=== PATIENT | female | born 1970 | race Caucasian/White ===

== ENCOUNTER 2017-09-19 11:54 | Day surgery (SDC) | payer BC ==
[~2017-09-19] VITALS: Ht 165.1 cm; Wt 59.1 kg
[2017-09-19] VITALS (8 sets, daily range): BP systolic 113–144; BP diastolic 65–87
[~2017-09-19 11:54] MED LIST: ceFAZolin 2gm in dextrose, iso 100 ML IV ONE
[2017-09-19] MEDS ORDERED: famotidine 20mg tablet PO ONE (12:55)
[2017-09-19] MEDS ORDERED: normal saline 500ml IV soln 500 ML IV SCH (12:55)
[2017-09-19] MEDS ORDERED: DIAZ10TA PO (13:24)
[2017-09-19] MEDS ORDERED: SCOP TOP (13:24)
[2017-09-19] MEDS ORDERED: ONDA8TAB9 PO (13:24)
[2017-09-19] MEDS ORDERED: OXCA150T5 PO (13:24)
[2017-09-19] MEDS ORDERED: BUPR1PAT TOP (13:24)
[2017-09-19] MEDS ORDERED: MILN50TA PO (13:24)
[2017-09-19 13:48] LABS: CLARITY,URINE CLEAR (Clear); COLOR,URINE YELLOW (Yellow); GLUCOSE, URINE NEGATIVE (Neg); KETONES,URINE NEGATIVE (Neg); LEUKOCYTE ESTERASE ,URINE NEGATIVE (Neg); NITRITES, URINE NEGATIVE (Neg); OCCULT BLOOD,URINE NEGATIVE (Neg); PROTEIN,URINE TRACE mg/dl (Neg)
[2017-09-19 13:50] LABS: UA COLLECTION TYPE NON-SPECIFIED
[2017-09-19 13:53] LABS: MUCUS STRANDS MODERATE /LPF (Neg); SQUAMOUS EPITHELIAL CELL,UR MODERATE /LPF (FEW)
[2017-09-19 13:54] LABS: BACTERIA,URINE FEW /HPF (Neg); WBC,URINE 0-4 /HPF (0-4)
[2017-09-19 14:24] LABS: BASOPHILS # (AUTO) 0.1 X10'3 (0-0.2); BASOPHILS % (AUTO) 1.4 % (0-1); EOSINOPHILS # (AUTO) 0.1 X10'3 (0-0.9); EOSINOPHILS % (AUTO) 1.9 % (0-6); LYMPHOCYTES # (AUTO) 1.8 X10'3 (1.1-4.8); LYMPHOCYTES % (AUTO) 31.9 % (21-51); MEAN CORPUSCULAR HEMOGLOBIN 28.1 PG (27.0-31.0); MEAN CORPUSCULAR HGB CONC 33.5 % (33.0-36.5); MEAN CORPUSCULAR VOLUME 83.9 FL (78-98); MEAN PLATELET VOLUME 9.7 FL (7.4-10.4); MONOCYTES # (AUTO) 0.5 X10'3 (0-0.9); MONOCYTES % (AUTO) 8.9 % (2-12); NEUTROPHILS # (AUTO) 3.2 X10'3 (1.8-7.7); NEUTROPHILS % (AUTO) 55.9 % (42-75); PRE OP HEMATOCRIT 31.5 % (35.0-45.0); PRE OP PLATELET COUNT 249 X10'3 (140-440); RED BLOOD COUNT 3.75 X10'6 (4.20-5.60); RED CELL DISTRIBUTION WIDTH 14.4 % (11.5-14.5)
[2017-09-19 14:29] LABS: PRE OP HEMOGLOBIN 10.6 g/dL (12.0-16.0)
[2017-09-19 14:32] LABS: ALBUMIN 3.5 G/DL (3.4-5.0); ALBUMIN/GLOBULIN RATIO 0.9 (1.1-1.5); ALKALINE PHOSPHATASE 75 IU/L (46-116); BLOOD UREA NITROGEN 11 MG/DL (7-18); BUN/CREATININE RATIO 15.7 (6.6-38.0); CHLORIDE 102 MMOL/L (99-107); PRE OP ALT 41 U/L (30-65); PRE OP ANION GAP 5 (8-16); PRE OP AST 29 U/L (10-37); PRE OP BILIRUB, TOTAL 0.3 MG/DL (0.0-1.0); PRE OP GLUCOSE 139 MG/DL (70-104); PRE OP POTASSIUM 3.9 MMOL/L (3.4-5.1); PRE OP SODIUM 138 MMOL/L (135-145); TOTAL CARBON DIOXIDE 30.9 MMOL/L (24-32); TOTAL PROTEIN 7.5 G/DL (6.4-8.2); eGFR 90 ML/MIN
[2017-09-19] MEDS ORDERED: ceFAZolin 1000mg inj ONE (17:06)
[2017-09-19] MEDS ORDERED: BUPIVAcaine/PF 2.5 mg/ml (0.25%) 30ml vial ONE (17:06)
[2017-09-19] MEDS ORDERED: bacitracin 15gm ointment TP ONE (17:06)
[2017-09-19] MEDS ORDERED: ringers solution, lacted 1,000 ML IV SCH (17:11)
[2017-09-19] MEDS ORDERED: fentaNYL/PF 50MCG/1 ML 2ML syringe ONE (17:15)
[2017-09-19] MEDS ORDERED: LIDOcaine 2% (20mg/ml) 5ml vial ONE (17:15)
[2017-09-19] MEDS ORDERED: hydrALAZINE 20mg/ml inj. IV PRN (17:15)
[2017-09-19] MEDS ORDERED: midazolam 2 mg/2 ml injection ONE (17:15)
[2017-09-19] MEDS ORDERED: fentaNYL/PF 50MCG/1 ML 2ML syringe IV PRN ×2 (17:15)
[2017-09-19] MEDS ORDERED: propofol inj 20 ML IV ONE (17:15)
[2017-09-19] MEDS ORDERED: ondansetron/PF 4mg/2ml inj IV PRN (17:15)
[2017-09-19] MEDS ORDERED: labetalol 5mg/ml 20ml inj. IV PRN (17:15)
[2017-09-19] MEDS ORDERED: sevoflurane 250ml liquid IH ONE (17:19)
[2017-09-19] MEDS ORDERED: dexamethasone sod phosphate 4mg/ml inj. ONE (17:33)
[2017-09-19] MEDS ORDERED: heparin sodium, porcine/PF 100unit/ml 5ML syringe IV ONE (18:40)
[2017-09-20] MEDS ORDERED: ringers solution, lacted 1,000 ML IV SCH (05:00)
== END 2017-09-19 19:09 | disposition home or self-care (01) ==
LOC: PAS 11:54
PROVIDERS: ATTEND Surgery
DX: K94.13 Enterostomy malfunction (principal); F32.9 Major depressive disorder, single episode, unspecified; D53.9 Nutritional anemia, unspecified; Z90.89 Acquired absence of other organs; Z98.890 Other specified postprocedural states; Z79.899 Other long term (current) drug therapy; Y83.8 Other surgical procedures as the cause of abnormal reaction of the patient, or of later complication, without mention of misadventure at the time of the procedure
CPT/HCPCS: 36415; 43999; 80053; 81001; 85025; A6449; B4087; J0690; J1100; J1642; J2001; J2250; J2704; J3010; J3490; J7120; A7000; J7030

== ENCOUNTER 2017-09-20 13:20 | Day surgery (SDC) | payer BC ==
[2017-09-20] VITALS (8 sets, daily range): BP systolic 113–142; BP diastolic 76–93
[~2017-09-20 13:20] MED LIST changes: +BUPR1PAT TOP; +DIAZ10TA PO; +MILN50TA PO; +ONDA8TAB9 PO; +OXCA150T5 PO; +SCOP TOP; -ceFAZolin 2gm in dextrose, iso 100 ML IV ONE
[2017-09-20] MEDS ORDERED: iohexol 300 MG/1 ML 50ml polymer ONE (14:02)
[2017-09-20] MEDS ORDERED: HYDROcodone/acetaminophen 10/325mg tab PO ONE (15:20)
== END 2017-09-20 16:05 | disposition home or self-care (01) ==
LOC: SSTAY O 13:20
PROVIDERS: ATTEND Radiology Diagnostic Radiology
DX: Z46.59 Encounter for fitting and adjustment of other gastrointestinal appliance and device (principal); K31.84 Gastroparesis; Z93.4 Other artificial openings of gastrointestinal tract status; Z79.899 Other long term (current) drug therapy
CPT/HCPCS: 49451; B4087; C1769; Q9967

== ENCOUNTER 2017-11-19 19:26 | Outpatient (CLI) | payer BC ==
[2017-11-19 20:18] LABS: ALANINE AMINOTRANSFERASE 16 U/L (12-78); ALBUMIN 3.9 G/DL (3.4-5.0); ALBUMIN/GLOBULIN RATIO 1.1 (1.1-1.5); ALKALINE PHOSPHATASE 75 IU/L (46-116); ANION GAP 11 (8-16); ASPARTATE AMINO TRANSFERASE 18 U/L (10-37); BILIRUBIN,TOTAL 0.2 MG/DL (0.1-1.0); BLOOD UREA NITROGEN 19 MG/DL (7-18); BUN/CREATININE RATIO 28.4 (6.6-38.0); CALCIUM 9.2 MG/DL (8.5-10.1); CHLORIDE 97 MMOL/L (99-107); CREATININE 0.67 MG/DL (0.40-0.90); GLUCOSE 115 MG/DL (70-104); LACTATE DEHYDROGENASE 173 U/L (81-234); MAGNESIUM 2.3 MG/DL (1.5-2.4); PHOSPHORUS 3.9 MG/DL (2.3-4.5); PREALBUMIN 27.2 MG/DL (19-36); SODIUM 142 MMOL/L (135-145); TOTAL CARBON DIOXIDE 34.3 MMOL/L (24-32); TOTAL PROTEIN 7.5 G/DL (6.4-8.2); TRIGLYCERIDES 280 MG/DL (20-135); eGFR > 90 ML/MIN
[2017-11-19 20:30] LABS: POTASSIUM 2.7 MMOL/L (3.5-5.1)
== END 2017-11-19 23:59 | disposition home or self-care (01) ==
LOC: LAB SPEC 19:26
PROVIDERS: ATTEND Nurse Practitioner Family
DX: K31.84 Gastroparesis (principal)
CPT/HCPCS: 36415; 80053; 83615; 83735; 84100; 84134; 84478; 85025

== ENCOUNTER 2018-01-08 17:54 | Inpatient (IN) | payer BC ==
[~2018-01-08] VITALS: Ht 165.1 cm; Wt 66.6 kg
[2018-01-08 18:56] LABS: INR 1.1 INR; PARTIAL THROMBOPLASTIN TIME 25 SECONDS (22-32); PROTHROMBIN TIME 11.4 SECONDS (9.0-12.0)
[2018-01-08 18:59] LABS: ANION GAP 14 (8-16); CHLORIDE 101 MMOL/L (99-107); GLUCOSE 116 MG/DL (70-104); POTASSIUM 3.8 MMOL/L (3.5-5.1); SODIUM 140 MMOL/L (135-145)
[2018-01-08 19:00] LABS: ALANINE AMINOTRANSFERASE 48 U/L (12-78); ALBUMIN 3.7 G/DL (3.4-5.0); ALBUMIN/GLOBULIN RATIO 0.9 (1.1-1.5); ALKALINE PHOSPHATASE 70 IU/L (46-116); ASPARTATE AMINO TRANSFERASE 44 U/L (10-37); BILIRUBIN,TOTAL 0.3 MG/DL (0.1-1.0); BLOOD UREA NITROGEN 27 MG/DL (7-18); BUN/CREATININE RATIO 21.6 (6.6-38.0); CREATININE 1.25 MG/DL (0.40-0.90); TOTAL PROTEIN 7.6 G/DL (6.4-8.2); eGFR 46 ML/MIN
[2018-01-08 19:01] LABS: BASOPHILS % (AUTO) 0 % (0-1); EOSINOPHILS % (AUTO) 0 % (0-6); HEMATOCRIT 31.3 % (35.0-45.0); HEMOGLOBIN 10.8 g/dl (12.0-16.0); LYMPHOCYTES # (AUTO) 0.3 X10'3 (1.1-4.8); LYMPHOCYTES % (AUTO) 2.4 % (21-51); MEAN CORPUSCULAR HEMOGLOBIN 29.4 PG (27.0-31.0); MEAN CORPUSCULAR HGB CONC 34.4 % (33.0-36.5); MEAN CORPUSCULAR VOLUME 85.6 FL (78-98); MEAN PLATELET VOLUME 9.4 FL (7.4-10.4); MONOCYTES % (AUTO) 0.2 % (2-12); NEUTROPHILS # (AUTO) 10.6 X10'3 (1.8-7.7); NEUTROPHILS % (AUTO) 97.4 % (42-75); PLATELET COUNT 168 X10'3 (140-440); RED BLOOD COUNT 3.66 X10'6 (4.20-5.60); RED CELL DISTRIBUTION WIDTH 12.7 % (11.5-14.5); WHITE BLOOD COUNT 10.9 X10'3 (4.5-11.0)
[2018-01-08 19:07] LABS: CLARITY,URINE SLIGHTLY CLOUDY (Clear); GLUCOSE, URINE NEGATIVE (Neg); KETONES,URINE TRACE mg/dl (Neg); LEUKOCYTE ESTERASE ,URINE NEGATIVE (Neg); NITRITES, URINE NEGATIVE (Neg); OCCULT BLOOD,URINE NEGATIVE (Neg); PROTEIN,URINE TRACE mg/dl (Neg); UROBILINOGEN,URINE 0.2 E.U/dL (0.2-1.0)
[2018-01-08 19:09] LABS: COLOR,URINE DARK YELLOW (Yellow); UA COLLECTION TYPE CLN CATCH MIDSTREAM
[2018-01-08 19:15] LABS: WBC,URINE 0-4 /HPF (0-4)
[2018-01-08 19:16] LABS: BACTERIA,URINE NONE SEEN /HPF (Neg); HYALINE CASTS 0-3 /LPF (NEGATIVE); MUCUS STRANDS MANY /LPF (Neg); RBC,URINE NONE SEEN /HPF (0-2); SQUAMOUS EPITHELIAL CELL,UR FEW /LPF (FEW)
[2018-01-08 20:07] LABS: LARGE PLATELETS FEW; PLATELET ESTIMATE NORMAL; TOTAL CELLS COUNTED 100
[2018-01-08] MEDS ORDERED: vancomycin/NS 1 GM ADD-VANTAGE 250 ML IV ONE (20:25)
[2018-01-08] MEDS ORDERED: CefTRIAXone 2gm/D5W 50ml 50 ML IV ONE (20:25)
[2018-01-08] MEDS ORDERED: enoxaparin 100mg/ml syringe SUBCUT ONE (20:45)
[2018-01-08] MEDS ORDERED: PROM6.25 PR (21:07)
[2018-01-08] MEDS ORDERED: potassium Cl 40MEQ/NS 500ml 500 ML IV PRN (22:10)
[2018-01-08] MEDS ORDERED: ondansetron/PF 4mg/2ml inj IV PRN (22:10)
[2018-01-08] MEDS ORDERED: magnesium 2GM in 50ml NS 50 ML IV PRN (22:10)
[2018-01-08] MEDS ORDERED: magnesium 4gm in 100ml NS 100 ML IV PRN (22:10)
[2018-01-08] MEDS ORDERED: acetaminophen 650mg rectal suppository RC PRN (22:10)
[2018-01-08] MEDS ORDERED: HYDROmorphone inj. 0.5 MG/0.5 ML DISP.SYRIN IV PRN (22:10)
[2018-01-08] MEDS ORDERED: proMETHazine 25mg rectal suppository RC PRN (22:15)
[2018-01-08] MEDS: normal saline 1000ml 1,000 ML IV SCH (22:51)
[2018-01-09] VITALS (16 sets, daily range): BP systolic 90–142; BP diastolic 46–70
[2018-01-09] MEDS ORDERED: normal saline 1000ml 1,000 ML IV ONE (01:15)
[2018-01-09] MEDS ORDERED: fentaNYL/PF 50MCG/1 ML 2ML syringe IV PRN (01:20)
[2018-01-09] MEDS: normal saline 1000ml 1,000 ML IV SCH ×3 (06:06→18:02)
[2018-01-09 06:20] LABS: BASOPHILS % (AUTO) 0.1 % (0-1); EOSINOPHILS % (AUTO) 0 % (0-6); HEMATOCRIT 28.9 % (35.0-45.0); HEMOGLOBIN 9.7 g/dl (12.0-16.0); LYMPHOCYTES # (AUTO) 0.5 X10'3 (1.1-4.8); LYMPHOCYTES % (AUTO) 7.7 % (21-51); MEAN CORPUSCULAR HEMOGLOBIN 29.6 PG (27.0-31.0); MEAN CORPUSCULAR HGB CONC 33.7 % (33.0-36.5); MEAN CORPUSCULAR VOLUME 87.8 FL (78-98); MEAN PLATELET VOLUME 9.3 FL (7.4-10.4); MONOCYTES # (AUTO) 0.2 X10'3 (0-0.9); MONOCYTES % (AUTO) 3.9 % (2-12); NEUTROPHILS # (AUTO) 5.2 X10'3 (1.8-7.7); NEUTROPHILS % (AUTO) 88.3 % (42-75); PLATELET COUNT 133 X10'3 (140-440); RED BLOOD COUNT 3.29 X10'6 (4.20-5.60); RED CELL DISTRIBUTION WIDTH 13.1 % (11.5-14.5); WHITE BLOOD COUNT 5.9 X10'3 (4.5-11.0)
[2018-01-09 06:49] LABS: ALBUMIN 2.9 G/DL (3.4-5.0); ANION GAP 8 (8-16); BLOOD UREA NITROGEN 16 MG/DL (7-18); BUN/CREATININE RATIO 18.8 (6.6-38.0); CALCIUM 8.1 MG/DL (8.5-10.1); CHLORIDE 106 MMOL/L (99-107); CREATININE 0.85 MG/DL (0.40-0.90); GLUCOSE 101 MG/DL (70-104); MAGNESIUM 1.7 MG/DL (1.5-2.4); POTASSIUM 3.4 MMOL/L (3.5-5.1); SODIUM 140 MMOL/L (135-145); TOTAL CARBON DIOXIDE 26.4 MMOL/L (24-32); eGFR 71 ML/MIN
[2018-01-09] MEDS: K and/or MAG REPLACEMENT MC SCH (08:00)
[2018-01-09] MEDS ORDERED: VANCOMYCIN 750MG IV in NS 250 ML IV SCH (08:00)
[2018-01-09] MEDS ORDERED: famotidine 20mg tablet PO ONE (09:24)
[2018-01-09] MEDS ORDERED: ringers solution, lacted 1,000 ML IV SCH ×2 (09:24→13:14)
[2018-01-09] MEDS: potassium Cl 40MEQ/NS 500ml 500 ML IV PRN (09:50)
[2018-01-09] MEDS: vancomycin/NS 1 GM ADD-VANTAGE 250 ML IV SCH ×2 (09:57→22:15)
[2018-01-09] MEDS: morphine 4 MG/ML inj SYRINge IV PRN (11:10)
[2018-01-09] MEDS ORDERED: MIDAZolam 5mg/5ml vial ONE (13:11)
[2018-01-09] MEDS ORDERED: fentaNYL/PF 50MCG/1 ML 2ML syringe ONE (13:11)
[2018-01-09] MEDS ORDERED: morphine 4 MG/ML inj SYRINge IV PRN ×2 (13:15)
[2018-01-09] MEDS ORDERED: meperidine/PF 50mg/ml syringe IV PRN ×3 (13:15)
[2018-01-09] MEDS ORDERED: ondansetron/PF 4mg/2ml inj IV PRN (13:15)
[2018-01-09] MEDS ORDERED: proCHLORperazine 10 MG/2 ml inj IV PRN (13:15)
[2018-01-09] MEDS ORDERED: LIDOcaine 1%/PF (10mg/ml) 5ml vial ONE (13:34)
[2018-01-09] MEDS ORDERED: iohexol 300 MG/1 ML 50ml polymer ONE (13:34)
[2018-01-09] MEDS ORDERED: dextrose 50%-water 50ml dispensing syringe IV PRN ×2 (20:35)
[2018-01-09] MEDS ORDERED: dextrose ORAL solution 15 GM/59 ML bottle PO PRN ×2 (20:35)
[2018-01-09] MEDS ORDERED: glucagon, human recombinant 1mg kit SUBCUT PRN (20:35)
[2018-01-09] MEDS ORDERED: MESSAGE TO PHARMACY PO ONE (20:35)
[2018-01-09] MEDS ORDERED: insulin Lispro (HumaLOG) vial - multi-dose SQ SCH (20:35)
[2018-01-09] MEDS ORDERED: proMETHazine 6.25 mg/5 ml UD oral syrup JT PRN (20:40)
[2018-01-09] MEDS ORDERED: non-formulary drug (Buprenorphine (Butrans) 1 PATCH) TOP SCH (20:40)
[2018-01-09] MEDS ORDERED: non-formulary drug (Ondansetron (Zofran Odt) 1 TAB) PO SCH (21:00)
[2018-01-09] MEDS: insulin glargine (Lantus) pen - multi-dose SQ SCH (21:00)
[2018-01-09] MEDS: proCHLORperazine 10 MG/2 ml inj IV PRN (21:31)
[2018-01-09] MEDS: ondansetron 4mg rapidly disintigrating tab PO SCH (21:31)
[2018-01-09] MEDS: potassium CL 20mEq in D5-1/2NS 1,000 ML IV SCH ×2 (21:31→21:44)
[2018-01-09] MEDS: scopolamine 1.5mg patch.TD72 TD SCH (21:32)
[2018-01-09] MEDS ORDERED: diazepam 5mg tablet PO ONE (22:00)
[2018-01-09] MEDS ORDERED: SAVELLA 50 MG PO ONE (22:00)
[2018-01-09] MEDS ORDERED: oxcarbazepine 150mg tablet PO ONE (22:00)
[2018-01-09] MEDS: famotidine/PF 10 mg/ml inj IV SCH (22:05)
[2018-01-10] VITALS: BP 98/52
[2018-01-10] MEDS: potassium Cl 40MEQ/NS 500ml 500 ML IV PRN (00:26)
[2018-01-10 04:30] VITALS: BP 90/63
[2018-01-10 05:50] LABS: BASOPHILS % (AUTO) 0.2 % (0-1); EOSINOPHILS % (AUTO) 0 % (0-6); HEMATOCRIT 23.5 % (35.0-45.0); HEMOGLOBIN 8.1 g/dl (12.0-16.0); LYMPHOCYTES # (AUTO) 0.9 X10'3 (1.1-4.8); LYMPHOCYTES % (AUTO) 23.2 % (21-51); MEAN CORPUSCULAR HEMOGLOBIN 29.5 PG (27.0-31.0); MEAN CORPUSCULAR HGB CONC 34.4 % (33.0-36.5); MEAN CORPUSCULAR VOLUME 85.7 FL (78-98); MEAN PLATELET VOLUME 9.6 FL (7.4-10.4); MONOCYTES # (AUTO) 0.3 X10'3 (0-0.9); MONOCYTES % (AUTO) 8.5 % (2-12); NEUTROPHILS # (AUTO) 2.5 X10'3 (1.8-7.7); NEUTROPHILS % (AUTO) 68.1 % (42-75); PLATELET COUNT 100 X10'3 (140-440); RED BLOOD COUNT 2.74 X10'6 (4.20-5.60); WHITE BLOOD COUNT 3.7 X10'3 (4.5-11.0)
[2018-01-10] MEDS ORDERED: diphenhydrAMINE 50 mg/ml inj IV PRN (06:05)
[2018-01-10 06:09] LABS: ALBUMIN 2.4 G/DL (3.4-5.0); ANION GAP 4 (8-16); BLOOD UREA NITROGEN 10 MG/DL (7-18); BUN/CREATININE RATIO 14.3 (6.6-38.0); CALCIUM 7.7 MG/DL (8.5-10.1); CHLORIDE 111 MMOL/L (99-107); GLUCOSE 103 MG/DL (70-104); MAGNESIUM 1.9 MG/DL (1.5-2.4); POTASSIUM 4.2 MMOL/L (3.5-5.1); SODIUM 138 MMOL/L (135-145); TOTAL CARBON DIOXIDE 22.9 MMOL/L (24-32); eGFR 89 ML/MIN
[2018-01-10 07:02] VITALS: BP 98/63
[2018-01-10] MEDS ORDERED: MILNACIPRAN HCL 50 MG TABLET PO SCH (08:00)
[2018-01-10] MEDS ORDERED: DIAZEPAM PO SCH (08:00)
[2018-01-10] MEDS ORDERED: diazepam 5mg tablet PO SCH (08:00)
[2018-01-10] MEDS ORDERED: SAVELLA 50 MG PO SCH (08:00)
[2018-01-10] MEDS: K and/or MAG REPLACEMENT MC SCH (08:00)
[2018-01-10] MEDS: ondansetron 4mg rapidly disintigrating tab PO SCH ×3 (08:48→20:15)
[2018-01-10] MEDS: oxcarbazepine 150mg tablet PO SCH (08:49)
[2018-01-10] MEDS: enoxaparin 60mg/0.6ml syringe SUBCUT SCH ×2 (08:51→20:10)
[2018-01-10] MEDS ORDERED: VANCOMYCIN LEVEL IV NR (09:30)
[2018-01-10] MEDS: BUTRANS TP SCH (10:00)
[2018-01-10] MEDS ORDERED: vancomycin/NS 1 GM ADD-VANTAGE 250 ML IV SCH (10:00)
[2018-01-10 10:10] LABS: VANCOMYCIN,TROUGH 7.2 UG/ML (6.0-14.0)
[2018-01-10] MEDS: famotidine/PF 10 mg/ml inj IV SCH ×2 (11:57→22:06)
[2018-01-10 12:27] VITALS: BP 96/64
[2018-01-10] MEDS ORDERED: insulin regular, human vial - multi-dose SQ SCH (15:44)
[2018-01-10 16:06] LABS: PREALBUMIN 12.5 MG/DL (19-36)
[2018-01-10] MEDS: potassium CL 20mEq in D5-1/2NS 1,000 ML IV SCH (16:35)
[2018-01-10 18:00] VITALS: BP 108/72
[2018-01-10] MEDS: lactobacillus rhamnosus 10,000 MMU CELLS/CAPSULE PO SCH (20:00)
[2018-01-10] MEDS: vancomycin/NS 1 GM ADD-VANTAGE 250 ML IV SCH (20:08)
[2018-01-10] MEDS: SAVELLA 100 MG PO SCH (20:17)
[2018-01-10] MEDS: insulin glargine (Lantus) pen - multi-dose SQ SCH (21:00)
[2018-01-10] MEDS: diazepam 5mg tablet PO SCH (23:41)
[2018-01-11] VITALS: BP 112/57
[2018-01-11] MEDS: potassium CL 20mEq in D5-1/2NS 1,000 ML IV SCH ×2 (02:35→08:03)
[2018-01-11] MEDS: vancomycin/NS 1 GM ADD-VANTAGE 250 ML IV SCH (03:17)
[2018-01-11 05:33] LABS: BASOPHILS % (AUTO) 0.3 % (0-1); EOSINOPHILS % (AUTO) 0.9 % (0-6); HEMATOCRIT 23.9 % (35.0-45.0); HEMOGLOBIN 8.2 g/dl (12.0-16.0); LYMPHOCYTES # (AUTO) 1.3 X10'3 (1.1-4.8); LYMPHOCYTES % (AUTO) 35.7 % (21-51); MEAN CORPUSCULAR HEMOGLOBIN 29.6 PG (27.0-31.0); MEAN CORPUSCULAR HGB CONC 34.3 % (33.0-36.5); MEAN CORPUSCULAR VOLUME 86.3 FL (78-98); MEAN PLATELET VOLUME 10.1 FL (7.4-10.4); MONOCYTES # (AUTO) 0.5 X10'3 (0-0.9); MONOCYTES % (AUTO) 12.5 % (2-12); NEUTROPHILS # (AUTO) 1.8 X10'3 (1.8-7.7); NEUTROPHILS % (AUTO) 50.6 % (42-75); PLATELET COUNT 111 X10'3 (140-440); RED BLOOD COUNT 2.77 X10'6 (4.20-5.60); RED CELL DISTRIBUTION WIDTH 13.2 % (11.5-14.5); WHITE BLOOD COUNT 3.7 X10'3 (4.5-11.0)
[2018-01-11 05:56] LABS: ALBUMIN 2.6 G/DL (3.4-5.0); ANION GAP 9 (8-16); BLOOD UREA NITROGEN 6 MG/DL (7-18); BUN/CREATININE RATIO 8.3 (6.6-38.0); CALCIUM 7.9 MG/DL (8.5-10.1); CHLORIDE 110 MMOL/L (99-107); CREATININE 0.72 MG/DL (0.40-0.90); GLUCOSE 110 MG/DL (70-104); MAGNESIUM 1.8 MG/DL (1.5-2.4); POTASSIUM 3.6 MMOL/L (3.5-5.1); SODIUM 142 MMOL/L (135-145); TOTAL CARBON DIOXIDE 23.5 MMOL/L (24-32); eGFR 86 ML/MIN
[2018-01-11 08:00] VITALS: BP 113/76
[2018-01-11] MEDS: K and/or MAG REPLACEMENT MC SCH (08:00)
[2018-01-11] MEDS: SAVELLA 100 MG PO SCH ×2 (08:01→20:34)
[2018-01-11] MEDS: famotidine/PF 10 mg/ml inj IV SCH ×2 (08:01→20:33)
[2018-01-11] MEDS: enoxaparin 60mg/0.6ml syringe SUBCUT SCH ×2 (08:02→20:33)
[2018-01-11] MEDS: ondansetron 4mg rapidly disintigrating tab PO SCH ×3 (08:02→20:34)
[2018-01-11] MEDS: oxcarbazepine 150mg tablet PO SCH (08:02)
[2018-01-11] MEDS: lactobacillus rhamnosus 10,000 MMU CELLS/CAPSULE PO SCH ×2 (08:02→20:00)
[2018-01-11] MEDS ORDERED: VANCOMYCIN LEVEL IV NR (10:30)
[2018-01-11 11:00] VITALS: BP 110/70
[2018-01-11] MEDS: Cefazolin 2GM/100ML NS IVPB 100 ML IV SCH ×2 (16:07→23:45)
[2018-01-11 18:00] VITALS: BP 120/74
[2018-01-11] MEDS: diazepam 5mg tablet PO SCH (20:34)
[2018-01-11] MEDS: insulin glargine (Lantus) pen - multi-dose SQ SCH (21:00)
[2018-01-11] MEDS: mirtazapine 15mg tablet PO SCH (21:50)
[2018-01-11] MEDS: morphine 4 MG/ML inj SYRINge IV PRN (22:02)
[2018-01-12] VITALS: BP 114/70
[2018-01-12] MEDS: potassium CL 20mEq in D5-1/2NS 1,000 ML IV SCH ×3 (02:20→18:35)
[2018-01-12 05:31] LABS: ALBUMIN 2.7 G/DL (3.4-5.0); ANION GAP 9 (8-16); BLOOD UREA NITROGEN 7 MG/DL (7-18); BUN/CREATININE RATIO 11.5 (6.6-38.0); CALCIUM 8.6 MG/DL (8.5-10.1); CHLORIDE 112 MMOL/L (99-107); CREATININE 0.61 MG/DL (0.40-0.90); GLUCOSE 103 MG/DL (70-104); MAGNESIUM 1.8 MG/DL (1.5-2.4); POTASSIUM 3.6 MMOL/L (3.5-5.1); SODIUM 146 MMOL/L (135-145); TOTAL CARBON DIOXIDE 25.3 MMOL/L (24-32); eGFR > 90 ML/MIN
[2018-01-12 06:03] LABS: BASOPHILS % (AUTO) 0.2 % (0-1); EOSINOPHILS # (AUTO) 0.1 X10'3 (0-0.9); EOSINOPHILS % (AUTO) 1.5 % (0-6); HEMATOCRIT 26.9 % (35.0-45.0); HEMOGLOBIN 8.9 g/dl (12.0-16.0); LYMPHOCYTES # (AUTO) 1.5 X10'3 (1.1-4.8); MEAN CORPUSCULAR HEMOGLOBIN 28.9 PG (27.0-31.0); MEAN CORPUSCULAR HGB CONC 33.2 % (33.0-36.5); MEAN CORPUSCULAR VOLUME 86.9 FL (78-98); MEAN PLATELET VOLUME 10.4 FL (7.4-10.4); MONOCYTES # (AUTO) 0.5 X10'3 (0-0.9); MONOCYTES % (AUTO) 13.4 % (2-12); NEUTROPHILS # (AUTO) 1.6 X10'3 (1.8-7.7); NEUTROPHILS % (AUTO) 44.9 % (42-75); PLATELET COUNT 139 X10'3 (140-440); RED CELL DISTRIBUTION WIDTH 12.8 % (11.5-14.5); WHITE BLOOD COUNT 3.6 X10'3 (4.5-11.0)
[2018-01-12 07:00] VITALS: BP 113/66
[2018-01-12] MEDS: K and/or MAG REPLACEMENT MC SCH (08:00)
[2018-01-12] MEDS: lactobacillus rhamnosus 10,000 MMU CELLS/CAPSULE PO SCH ×2 (08:00→20:00)
[2018-01-12] MEDS: enoxaparin 60mg/0.6ml syringe SUBCUT SCH ×2 (08:52→20:21)
[2018-01-12] MEDS: famotidine/PF 10 mg/ml inj IV SCH ×2 (08:54→20:21)
[2018-01-12] MEDS: SAVELLA 100 MG PO SCH ×2 (08:57→20:23)
[2018-01-12] MEDS: oxcarbazepine 150mg tablet PO SCH (08:58)
[2018-01-12] MEDS: ondansetron 4mg rapidly disintigrating tab PO SCH ×3 (08:58→20:22)
[2018-01-12] MEDS ORDERED: ibuprofen tablet 400 MG TABLET PO PRN (09:40)
[2018-01-12] MEDS: Cefazolin 2GM/100ML NS IVPB 100 ML IV SCH ×2 (10:17→17:51)
[2018-01-12] MEDS: ibuprofen 200mg tablet PO PRN (10:23)
[2018-01-12 12:00] VITALS: BP 132/78
[2018-01-12 20:00] VITALS: BP 125/87
[2018-01-12] MEDS: mirtazapine 15mg tablet PO SCH (20:22)
[2018-01-12] MEDS: diazepam 5mg tablet PO SCH (20:22)
[2018-01-12] MEDS: scopolamine 1.5mg patch.TD72 TD SCH ×2 (20:40→23:09)
[2018-01-12] MEDS: OCTREOTIDE SQ SCH (21:00)
[2018-01-12] MEDS: insulin glargine (Lantus) pen - multi-dose SQ SCH (21:00)
[2018-01-13] VITALS: BP 107/69
[2018-01-13] MEDS: Cefazolin 2GM/100ML NS IVPB 100 ML IV SCH ×3 (00:09→16:31)
[2018-01-13] MEDS: potassium CL 20mEq in D5-1/2NS 1,000 ML IV SCH ×2 (04:33→14:40)
[2018-01-13] MEDS: morphine 4 MG/ML inj SYRINge IV PRN ×2 (05:01→09:42)
[2018-01-13] MEDS: ibuprofen 200mg tablet PO PRN (05:13)
[2018-01-13 05:19] LABS: BASOPHILS % (AUTO) 0.1 % (0-1); EOSINOPHILS # (AUTO) 0.1 X10'3 (0-0.9); EOSINOPHILS % (AUTO) 1.9 % (0-6); HEMATOCRIT 25.1 % (35.0-45.0); HEMOGLOBIN 8.5 g/dl (12.0-16.0); LYMPHOCYTES # (AUTO) 1.6 X10'3 (1.1-4.8); LYMPHOCYTES % (AUTO) 38.7 % (21-51); MEAN CORPUSCULAR HEMOGLOBIN 29.2 PG (27.0-31.0); MEAN CORPUSCULAR HGB CONC 33.7 % (33.0-36.5); MEAN CORPUSCULAR VOLUME 86.6 FL (78-98); MEAN PLATELET VOLUME 9.4 FL (7.4-10.4); MONOCYTES # (AUTO) 0.6 X10'3 (0-0.9); MONOCYTES % (AUTO) 13.7 % (2-12); NEUTROPHILS # (AUTO) 1.9 X10'3 (1.8-7.7); NEUTROPHILS % (AUTO) 45.6 % (42-75); PLATELET COUNT 154 X10'3 (140-440); RED CELL DISTRIBUTION WIDTH 13.3 % (11.5-14.5); WHITE BLOOD COUNT 4.1 X10'3 (4.5-11.0)
[2018-01-13 05:33] LABS: ALBUMIN 2.6 G/DL (3.4-5.0); ANION GAP 8 (8-16); BLOOD UREA NITROGEN 6 MG/DL (7-18); CALCIUM 8.4 MG/DL (8.5-10.1); CHLORIDE 108 MMOL/L (99-107); CREATININE 0.67 MG/DL (0.40-0.90); GLUCOSE 98 MG/DL (70-104); MAGNESIUM 1.8 MG/DL (1.5-2.4); SODIUM 143 MMOL/L (135-145); TOTAL CARBON DIOXIDE 27.4 MMOL/L (24-32); eGFR > 90 ML/MIN
[2018-01-13 08:00] VITALS: BP 121/74
[2018-01-13] MEDS: K and/or MAG REPLACEMENT MC SCH (08:00)
[2018-01-13] MEDS: lactobacillus rhamnosus 10,000 MMU CELLS/CAPSULE PO SCH ×2 (08:00→20:00)
[2018-01-13] MEDS: famotidine/PF 10 mg/ml inj IV SCH ×2 (08:46→20:51)
[2018-01-13] MEDS: SAVELLA 100 MG PO SCH (08:46)
[2018-01-13] MEDS: oxcarbazepine 150mg tablet PO SCH (08:46)
[2018-01-13] MEDS: ondansetron 4mg rapidly disintigrating tab PO SCH ×3 (08:47→20:49)
[2018-01-13] MEDS: enoxaparin 60mg/0.6ml syringe SUBCUT SCH ×2 (08:50→20:52)
[2018-01-13 12:00] VITALS: BP 119/75
[2018-01-13 20:00] VITALS: BP 124/74
[2018-01-13] MEDS: diazepam 5mg tablet PO SCH (20:49)
[2018-01-13] MEDS: mirtazapine 15mg tablet PO SCH (20:50)
[2018-01-13] MEDS: MILNACIPRAN HCL 50 MG TABLET PO SCH (20:51)
[2018-01-13] MEDS: insulin glargine (Lantus) pen - multi-dose SQ SCH (21:00)
[2018-01-13] MEDS: OCTREOTIDE SQ SCH (21:18)
[2018-01-14] VITALS: BP 107/65
[2018-01-14] MEDS: Cefazolin 2GM/100ML NS IVPB 100 ML IV SCH ×3 (00:09→15:49)
[2018-01-14] MEDS: potassium CL 20mEq in D5-1/2NS 1,000 ML IV SCH ×4 (04:15→22:34)
[2018-01-14] MEDS: morphine 4 MG/ML inj SYRINge IV PRN ×2 (04:21→22:56)
[2018-01-14] MEDS: SUMAtriptan 25 MG tablet PO PRN (04:26)
[2018-01-14 05:36] LABS: PREALBUMIN 14.2 MG/DL (19-36)
[2018-01-14] MEDS: ibuprofen 200mg tablet PO PRN (07:43)
[2018-01-14] MEDS: famotidine/PF 10 mg/ml inj IV SCH ×2 (07:45→22:20)
[2018-01-14] MEDS: lactobacillus rhamnosus 10,000 MMU CELLS/CAPSULE PO SCH ×2 (07:46→20:00)
[2018-01-14] MEDS: ondansetron 4mg rapidly disintigrating tab PO SCH ×3 (07:47→22:20)
[2018-01-14] MEDS: MILNACIPRAN HCL 50 MG TABLET PO SCH ×2 (07:47→22:20)
[2018-01-14] MEDS: oxcarbazepine 150mg tablet PO SCH (07:47)
[2018-01-14] MEDS: enoxaparin 60mg/0.6ml syringe SUBCUT SCH ×2 (07:48→22:22)
[2018-01-14] MEDS: K and/or MAG REPLACEMENT MC SCH (08:00)
[2018-01-14 08:06] VITALS: BP 132/75
[2018-01-14] MEDS: scopolamine 1.5mg patch.TD72 TD SCH (11:20)
[2018-01-14 11:46] VITALS: BP 118/73
[2018-01-14 19:30] VITALS: BP 125/78
[2018-01-14] MEDS: OCTREOTIDE SQ SCH (21:00)
[2018-01-14] MEDS: insulin glargine (Lantus) pen - multi-dose SQ SCH (21:00)
[2018-01-14] MEDS: mirtazapine 15mg tablet PO SCH (22:19)
[2018-01-14] MEDS: diazepam 5mg tablet PO SCH (22:35)
[2018-01-15] VITALS (8 sets, daily range): BP systolic 115–158; BP diastolic 59–89
[2018-01-15] MEDS: Cefazolin 2GM/100ML NS IVPB 100 ML IV SCH ×4 (00:25→23:43)
[2018-01-15] MEDS: ibuprofen 200mg tablet PO PRN (00:30)
[2018-01-15] MEDS: SUMAtriptan 25 MG tablet PO PRN ×4 (02:46→20:31)
[2018-01-15] MEDS: famotidine/PF 10 mg/ml inj IV SCH ×2 (06:41→20:24)
[2018-01-15] MEDS: lactobacillus rhamnosus 10,000 MMU CELLS/CAPSULE PO SCH ×2 (06:41→20:31)
[2018-01-15] MEDS: MILNACIPRAN HCL 50 MG TABLET PO SCH ×2 (06:42→20:31)
[2018-01-15] MEDS: oxcarbazepine 150mg tablet PO SCH (06:43)
[2018-01-15] MEDS: ondansetron 4mg rapidly disintigrating tab PO SCH ×3 (06:43→20:22)
[2018-01-15] MEDS: enoxaparin 60mg/0.6ml syringe SUBCUT SCH ×2 (08:00→20:24)
[2018-01-15] MEDS: K and/or MAG REPLACEMENT MC SCH (08:00)
[2018-01-15] MEDS: morphine 4 MG/ML inj SYRINge IV PRN ×2 (08:07→20:23)
[2018-01-15] MEDS: proCHLORperazine 10 MG/2 ml inj IV PRN ×2 (08:07→22:39)
[2018-01-15] MEDS ORDERED: midazolam 2 mg/2 ml injection ONE (14:40)
[2018-01-15] MEDS ORDERED: HYDROmorphone 1 mg/ml syringe ONE (14:40)
[2018-01-15] MEDS ORDERED: LIDOcaine 0.5% (5mg/ml) 50ml vial ONE (14:40)
[2018-01-15] MEDS ORDERED: HYDROmorphone 1 mg/ml syringe IV ONE (14:50)
[2018-01-15] MEDS ORDERED: MIDAZolam 5mg/ml 2ml vial IV ONE (16:00)
[2018-01-15] MEDS: potassium CL 20mEq in D5-1/2NS 1,000 ML IV SCH ×2 (16:35→22:39)
[2018-01-15] MEDS: diazepam 5mg tablet PO SCH (20:31)
[2018-01-15] MEDS: mirtazapine 15mg tablet PO SCH (20:31)
[2018-01-15] MEDS: insulin glargine (Lantus) pen - multi-dose SQ SCH (20:59)
[2018-01-15] MEDS: OCTREOTIDE SQ SCH (21:00)
[2018-01-16] VITALS: BP 106/66
[2018-01-16] MEDS: morphine 4 MG/ML inj SYRINge IV PRN (01:57)
[2018-01-16] MEDS: proCHLORperazine 10 MG/2 ml inj IV PRN (04:48)
[2018-01-16 07:13] VITALS: BP 93/57
[2018-01-16] MEDS: K and/or MAG REPLACEMENT MC SCH (08:00)
[2018-01-16] MEDS: lactobacillus rhamnosus 10,000 MMU CELLS/CAPSULE PO SCH ×2 (08:00→20:00)
[2018-01-16] MEDS: Cefazolin 2GM/100ML NS IVPB 100 ML IV SCH ×3 (08:48→23:52)
[2018-01-16] MEDS: enoxaparin 60mg/0.6ml syringe SUBCUT SCH ×2 (08:52→22:07)
[2018-01-16] MEDS: MILNACIPRAN HCL 50 MG TABLET PO SCH ×2 (08:54→22:08)
[2018-01-16] MEDS: ondansetron 4mg rapidly disintigrating tab PO SCH ×3 (08:55→22:04)
[2018-01-16] MEDS: oxcarbazepine 150mg tablet PO SCH (08:55)
[2018-01-16] MEDS: SUMAtriptan 25 MG tablet PO PRN ×2 (08:55→22:05)
[2018-01-16] MEDS: famotidine/PF 10 mg/ml inj IV SCH ×2 (09:02→22:12)
[2018-01-16] MEDS: potassium CL 20mEq in D5-1/2NS 1,000 ML IV SCH ×2 (11:14→22:04)
[2018-01-16 11:24] VITALS: BP 154/88
[2018-01-16 13:15] VITALS: BP 152/75
[2018-01-16 18:00] VITALS: BP 126/79
[2018-01-16] MEDS: OCTREOTIDE SQ SCH (21:00)
[2018-01-16] MEDS: insulin glargine (Lantus) pen - multi-dose SQ SCH (21:00)
[2018-01-16] MEDS: diazepam 5mg tablet PO SCH (22:09)
[2018-01-16] MEDS: mirtazapine 15mg tablet PO SCH (22:10)
[2018-01-17] VITALS: BP 121/76
[2018-01-17] MEDS: famotidine/PF 10 mg/ml inj IV SCH (07:39)
[2018-01-17] MEDS: ondansetron 4mg rapidly disintigrating tab PO SCH ×2 (07:43→13:46)
[2018-01-17] MEDS: oxcarbazepine 150mg tablet PO SCH (07:43)
[2018-01-17] MEDS: enoxaparin 60mg/0.6ml syringe SUBCUT SCH (07:45)
[2018-01-17] MEDS: MILNACIPRAN HCL 50 MG TABLET PO SCH (07:48)
[2018-01-17] MEDS: Cefazolin 2GM/100ML NS IVPB 100 ML IV SCH (07:48)
[2018-01-17] MEDS: lactobacillus rhamnosus 10,000 MMU CELLS/CAPSULE PO SCH (07:49)
[2018-01-17] MEDS: K and/or MAG REPLACEMENT MC SCH (07:50)
[2018-01-17 08:40] VITALS: BP 112/73
[2018-01-17] MEDS: potassium CL 20mEq in D5-1/2NS 1,000 ML IV SCH (09:28)
[2018-01-17] MEDS: BUTRANS TP SCH (10:00)
[2018-01-17] MEDS: scopolamine 1.5mg patch.TD72 TD SCH (10:40)
[2018-01-17] MEDS ORDERED: MIRT15TA8 PO (11:24)
[2018-01-17] MEDS ORDERED: LACT1CAP26 PO (11:24)
== END 2018-01-17 14:00 | disposition home or self-care (01) | DRG 314 ==
LOC: ER 17:55 → ED HOLD 22:06 → SUR 3N 01-09 16:07
PROVIDERS: ADMIT Family Medicine; ATTEND Family Medicine
PROC: 0JPT0WZ Removal of Totally Implantable Vascular Access Device from Trunk Subcutaneous Tissue and Fascia, Open Approach (ICD-10-PCS; 2018-01-09)
PROC: 05PYX3Z Removal of Infusion Device from Upper Vein, External Approach (ICD-10-PCS; 2018-01-09)
PROC: 0JH60XZ Insertion of Tunneled Vascular Access Device into Chest Subcutaneous Tissue and Fascia, Open Approach (ICD-10-PCS; 2018-01-15)
PROC: 02HV33Z Insertion of Infusion Device into Superior Vena Cava, Percutaneous Approach (ICD-10-PCS; 2018-01-15)
PROC: B548ZZA Ultrasonography of Superior Vena Cava, Guidance (ICD-10-PCS; 2018-01-15)
PROC: 0D2DXUZ Change Feeding Device in Lower Intestinal Tract, External Approach (ICD-10-PCS; principal; 2018-01-16)
DX: T80.211A Bloodstream infection due to central venous catheter, initial encounter (principal); A41.01 Sepsis due to Methicillin susceptible Staphylococcus aureus; I82.C11 Acute embolism and thrombosis of right internal jugular vein; K90.9 Intestinal malabsorption, unspecified; K31.84 Gastroparesis; K90.0 Celiac disease; D64.9 Anemia, unspecified; E86.0 Dehydration; Y83.8 Other surgical procedures as the cause of abnormal reaction of the patient, or of later complication, without mention of misadventure at the time of the procedure; D50.0 Iron deficiency anemia secondary to blood loss (chronic); G43.909 Migraine, unspecified, not intractable, without status migrainosus; I80.9 Phlebitis and thrombophlebitis of unspecified site; Z82.49 Family history of ischemic heart disease and other diseases of the circulatory system; Z93.1 Gastrostomy status; Z93.4 Other artificial openings of gastrointestinal tract status; Z90.49 Acquired absence of other specified parts of digestive tract; Y92.89 Other specified places as the place of occurrence of the external cause
CPT/HCPCS: 36415; 36558; 36590; 49451; 70450; 71045; 76937; 77001; 80048; 80053; 80202; 81001; 82948; 83036; 83605; 83735; 84134; 84145; 85025; 85610; 85730; 87040; 87070; 87077; 87186; 93306; 93971; 99152; 99153; A6219; A6257; A6258; A9270; B4087; C1751; C1769; C1894; J0690; J0696; J0780; J1170; J1650; J1815; J2001; J2250; J2270; J2405; J3010; J3370; J3480; J3490; J7030; J7120; Q0169; Q9967

== ENCOUNTER 2018-06-10 14:52 | Inpatient (IN) | payer MEDICARE, OTHER ==
[~2018-06-10] VITALS: Ht 165.1 cm; Wt 57.8 kg
[~2018-06-10 14:52] MED LIST changes: +LACT1CAP26 PO; +MIRT15TA8 PO; +PROM6.256 PR
[2018-06-10] MEDS ORDERED: normal saline 1000ML IV soln IV ONE (15:25)
[2018-06-10] MEDS ORDERED: acetaminophen 325mg tablet PO STA (15:25)
[2018-06-10] MEDS ORDERED: acetaminophen 325mg/10.15ml oral unit dose solution PO ONE (15:40)
[2018-06-10 16:07] LABS: BASOPHILS % (AUTO) 0.3 % (0-1); EOSINOPHILS % (AUTO) 0 % (0-6); HEMATOCRIT 31.1 % (35.0-45.0); HEMOGLOBIN 10.5 g/dl (12.0-16.0); LYMPHOCYTES # (AUTO) 0.6 X10'3 (1.1-4.8); LYMPHOCYTES % (AUTO) 11.5 % (21-51); MEAN CORPUSCULAR HEMOGLOBIN 29.7 PG (27.0-31.0); MEAN CORPUSCULAR HGB CONC 33.7 % (33.0-36.5); MEAN CORPUSCULAR VOLUME 88.1 FL (78-98); MEAN PLATELET VOLUME 8.3 FL (7.4-10.4); MONOCYTES # (AUTO) 0.6 X10'3 (0-0.9); MONOCYTES % (AUTO) 11.1 % (2-12); NEUTROPHILS # (AUTO) 3.8 X10'3 (1.8-7.7); NEUTROPHILS % (AUTO) 77.1 % (42-75); PLATELET COUNT 170 X10'3 (140-440); RED BLOOD COUNT 3.53 X10'6 (4.20-5.60); RED CELL DISTRIBUTION WIDTH 12.6 % (11.5-14.5)
[2018-06-10 16:19] LABS: INR 1.1 INR; PARTIAL THROMBOPLASTIN TIME 30 SECONDS (22-32); PROTHROMBIN TIME 11.3 SECONDS (9.0-12.0)
[2018-06-10 16:21] LABS: ALANINE AMINOTRANSFERASE 42 U/L (12-78); ALBUMIN 3.4 G/DL (3.4-5.0); ALBUMIN/GLOBULIN RATIO 0.7 (1.1-1.5); ALKALINE PHOSPHATASE 103 IU/L (46-116); ANION GAP 12 (8-16); ASPARTATE AMINO TRANSFERASE 22 U/L (10-37); BILIRUBIN,TOTAL 0.3 MG/DL (0.1-1.0); BLOOD UREA NITROGEN 23 MG/DL (7-18); BUN/CREATININE RATIO 27.7 (6.6-38.0); CALCIUM 9.4 MG/DL (8.5-10.1); CHLORIDE 100 MMOL/L (99-107); CREATININE 0.83 MG/DL (0.40-0.90); GLUCOSE 117 MG/DL (70-104); MAGNESIUM 2.2 MG/DL (1.5-2.4); POTASSIUM 3.4 MMOL/L (3.5-5.1); SODIUM 139 MMOL/L (135-145); TOTAL CARBON DIOXIDE 26.9 MMOL/L (24-32); TOTAL PROTEIN 8.2 G/DL (6.4-8.2); eGFR 73 ML/MIN
[2018-06-10 16:46] LABS: CLARITY,URINE CLEAR (Clear); COLOR,URINE YELLOW (Yellow); GLUCOSE, URINE NEGATIVE (Neg); KETONES,URINE NEGATIVE (Neg); LEUKOCYTE ESTERASE ,URINE NEGATIVE (Neg); NITRITES, URINE NEGATIVE (Neg); OCCULT BLOOD,URINE MODERATE (Neg); PROTEIN,URINE 100 mg/dl (Neg); UROBILINOGEN,URINE 0.2 E.U/dL (0.2-1.0)
[2018-06-10 16:48] LABS: UA COLLECTION TYPE CLN CATCH MIDSTREAM; URINE HCG NEGATIVE (NEG)
[2018-06-10 16:54] LABS: MUCUS STRANDS MANY /LPF (Neg); SQUAMOUS EPITHELIAL CELL,UR FEW /LPF (FEW)
[2018-06-10 16:55] LABS: BACTERIA,URINE FEW /HPF (Neg); WBC,URINE 0-4 /HPF (0-4)
[2018-06-10] MEDS ORDERED: normal saline 1000ML IV soln IVB ONE (17:25)
[2018-06-10] MEDS ORDERED: vancomycin/NS 1 GM ADD-VANTAGE 250 ML IV ONE (17:25)
[2018-06-10] MEDS ORDERED: normal saline 1000ml 1,000 ML IV ONE ×3 (18:00→22:45)
[2018-06-10] MEDS ORDERED: Potassium Cl inj 20 MEQ in dextrose 5%-1/2 normal saline 1,000 ML IV SCH (18:32)
[2018-06-10] MEDS ORDERED: magnesium 1gm/100ml D5W IVPB 100 ML IV PRN (18:35)
[2018-06-10] MEDS ORDERED: magnesium Cl slow-release 64mg tablet PO PRN (18:35)
[2018-06-10] MEDS ORDERED: ondansetron/PF 4mg/2ml inj IV PRN (18:35)
[2018-06-10] MEDS ORDERED: acetaminophen 325mg tablet PO PRN (18:35)
[2018-06-10] MEDS ORDERED: bisacodyl 10mg suppository rectal RC PRN (18:35)
[2018-06-10] MEDS ORDERED: mag hydrox/Alum hydrox/simeth 30ml oral suspension PO PRN (18:35)
[2018-06-10] MEDS ORDERED: potassium Cl 20 mEq SR tablet PO PRN ×2 (18:35)
[2018-06-10] MEDS ORDERED: potassium Cl 40MEQ/NS 500ml 500 ML IV PRN ×2 (18:35)
[2018-06-10] MEDS ORDERED: magnesium 4gm in 100ml NS 100 ML IV PRN (18:35)
[2018-06-10] MEDS ORDERED: diphenhydrAMINE 50 mg/ml inj IV PRN (18:45)
[2018-06-10] MEDS: potassium Cl 20mEq in D5-NS 1,000 ML IV SCH (18:50)
[2018-06-10] MEDS ORDERED: iohexol 300mg/ml 100ml inj. ONE (18:57)
[2018-06-10] MEDS: famotidine/PF 10 mg/ml inj IV SCH (20:56)
[2018-06-10 23:00] VITALS: BP 84/54
[2018-06-11] VITALS: BP 95/59
[2018-06-11] MEDS: potassium Cl 20mEq in D5-NS 1,000 ML IV SCH ×3 (00:20→23:59)
[2018-06-11] MEDS: cefepime 1GM/NS ADD-VANTAGE 100 ML IV SCH ×2 (00:21→07:26)
[2018-06-11 01:46] VITALS: BP 98/62
[2018-06-11 04:48] VITALS: BP 94/56
[2018-06-11] MEDS: enoxaparin 40mg/0.4ml syringe SUBCUT SCH (07:25)
[2018-06-11] MEDS: famotidine/PF 10 mg/ml inj IV SCH ×2 (07:26→20:08)
[2018-06-11] MEDS ORDERED: MIRT45TA83 PO (07:29)
[2018-06-11] MEDS ORDERED: ESCI5SOL4 PO (07:32)
[2018-06-11] MEDS: K and/or MAG REPLACEMENT MC SCH (07:37)
[2018-06-11 08:00] VITALS: BP 81/48
[2018-06-11 08:14] LABS: BASOPHILS % (AUTO) 0.4 % (0-1); EOSINOPHILS % (AUTO) 0.8 % (0-6); HEMATOCRIT 23.6 % (35.0-45.0); HEMOGLOBIN 7.8 g/dl (12.0-16.0); LYMPHOCYTES # (AUTO) 1.1 X10'3 (1.1-4.8); LYMPHOCYTES % (AUTO) 30.4 % (21-51); MEAN CORPUSCULAR HEMOGLOBIN 29.3 PG (27.0-31.0); MEAN CORPUSCULAR HGB CONC 33.1 % (33.0-36.5); MEAN CORPUSCULAR VOLUME 88.5 FL (78-98); MEAN PLATELET VOLUME 8.9 FL (7.4-10.4); MONOCYTES # (AUTO) 0.6 X10'3 (0-0.9); MONOCYTES % (AUTO) 16.5 % (2-12); NEUTROPHILS # (AUTO) 1.8 X10'3 (1.8-7.7); NEUTROPHILS % (AUTO) 51.9 % (42-75); PLATELET COUNT 105 X10'3 (140-440); RED BLOOD COUNT 2.67 X10'6 (4.20-5.60); RED CELL DISTRIBUTION WIDTH 12.7 % (11.5-14.5); WHITE BLOOD COUNT 3.5 X10'3 (4.5-11.0)
[2018-06-11 08:35] LABS: ALANINE AMINOTRANSFERASE 32 U/L (12-78); ALBUMIN 2.1 G/DL (3.4-5.0); ALBUMIN/GLOBULIN RATIO 0.6 (1.1-1.5); ALKALINE PHOSPHATASE 67 IU/L (46-116); ANION GAP 10 (8-16); ASPARTATE AMINO TRANSFERASE 21 U/L (10-37); BILIRUBIN,TOTAL 0.2 MG/DL (0.1-1.0); BLOOD UREA NITROGEN 9 MG/DL (7-18); CALCIUM 7.4 MG/DL (8.5-10.1); CHLORIDE 114 MMOL/L (99-107); GLUCOSE 105 MG/DL (70-104); POTASSIUM 3.6 MMOL/L (3.5-5.1); SODIUM 146 MMOL/L (135-145); TOTAL CARBON DIOXIDE 21.7 MMOL/L (24-32); TOTAL PROTEIN 5.4 G/DL (6.4-8.2); eGFR > 90 ML/MIN
[2018-06-11 09:51] LABS: PLATELET ESTIMATE DECREASED; TOTAL CELLS COUNTED 100
[2018-06-11 11:00] VITALS: BP 86/46
[2018-06-11] MEDS ORDERED: cefepime 2gm inj IV SCH (16:00)
[2018-06-11] MEDS: cefepime 2g/NS 100ml ADVANTAGE 100 ML IV SCH ×2 (17:16→23:59)
[2018-06-11 20:00] VITALS: BP 101/63
[2018-06-12] VITALS: BP 98/60
[2018-06-12] MEDS: VANCOMYCIN 750MG IV in NS 250 ML IV SCH ×3 (02:15→18:44)
[2018-06-12 04:42] LABS: BASOPHILS % (AUTO) 0.3 % (0-1); EOSINOPHILS # (AUTO) 0.1 X10'3 (0-0.9); EOSINOPHILS % (AUTO) 3.3 % (0-6); HEMATOCRIT 24.3 % (35.0-45.0); HEMOGLOBIN 8.1 g/dl (12.0-16.0); LYMPHOCYTES # (AUTO) 1.3 X10'3 (1.1-4.8); LYMPHOCYTES % (AUTO) 42.8 % (21-51); MEAN CORPUSCULAR HEMOGLOBIN 29.4 PG (27.0-31.0); MEAN CORPUSCULAR HGB CONC 33.3 % (33.0-36.5); MEAN CORPUSCULAR VOLUME 88.4 FL (78-98); MEAN PLATELET VOLUME 9.7 FL (7.4-10.4); MONOCYTES # (AUTO) 0.5 X10'3 (0-0.9); MONOCYTES % (AUTO) 16.2 % (2-12); NEUTROPHILS # (AUTO) 1.2 X10'3 (1.8-7.7); NEUTROPHILS % (AUTO) 37.4 % (42-75); PLATELET COUNT 114 X10'3 (140-440); RED BLOOD COUNT 2.75 X10'6 (4.20-5.60); RED CELL DISTRIBUTION WIDTH 12.8 % (11.5-14.5); WHITE BLOOD COUNT 3.1 X10'3 (4.5-11.0)
[2018-06-12 05:00] LABS: ALANINE AMINOTRANSFERASE 31 U/L (12-78); ALBUMIN 2.2 G/DL (3.4-5.0); ALBUMIN/GLOBULIN RATIO 0.6 (1.1-1.5); ALKALINE PHOSPHATASE 68 IU/L (46-116); ANION GAP 11 (8-16); ASPARTATE AMINO TRANSFERASE 20 U/L (10-37); BILIRUBIN,TOTAL 0.2 MG/DL (0.1-1.0); BLOOD UREA NITROGEN 5 MG/DL (7-18); BUN/CREATININE RATIO 7.8 (6.6-38.0); CALCIUM 8.4 MG/DL (8.5-10.1); CHLORIDE 114 MMOL/L (99-107); CREATININE 0.64 MG/DL (0.40-0.90); GLUCOSE 92 MG/DL (70-104); MAGNESIUM 1.9 MG/DL (1.5-2.4); POTASSIUM 3.6 MMOL/L (3.5-5.1); SODIUM 147 MMOL/L (135-145); TOTAL CARBON DIOXIDE 22.3 MMOL/L (24-32); TOTAL PROTEIN 5.7 G/DL (6.4-8.2); eGFR > 90 ML/MIN
[2018-06-12 07:02] VITALS: BP 115/77
[2018-06-12 07:24] VITALS: BP 131/82
[2018-06-12] MEDS: cefepime 2g/NS 100ml ADVANTAGE 100 ML IV SCH ×2 (07:55→16:00)
[2018-06-12] MEDS: enoxaparin 40mg/0.4ml syringe SUBCUT SCH (07:57)
[2018-06-12] MEDS: K and/or MAG REPLACEMENT MC SCH (08:00)
[2018-06-12] MEDS: famotidine/PF 10 mg/ml inj IV SCH ×2 (08:07→20:05)
[2018-06-12 11:00] VITALS: BP 125/82
[2018-06-12 12:31] VITALS: BP 144/84
[2018-06-12] MEDS: potassium Cl 20mEq in D5-NS 1,000 ML IV SCH ×2 (13:26→20:50)
[2018-06-12] MEDS ORDERED: Dextrose 10%-water IV solution 1,000 ML IV PRN (13:48)
[2018-06-12] MEDS ORDERED: magnesium Cl slow-release 64mg tablet PO PRN (13:50)
[2018-06-12] MEDS ORDERED: magnesium 4gm in 100ml NS 100 ML IV PRN (13:50)
[2018-06-12] MEDS ORDERED: magnesium 1gm/100ml D5W IVPB 100 ML IV PRN (13:50)
[2018-06-12 15:13] LABS: ANION GAP 11 (8-16); BLOOD UREA NITROGEN 5 MG/DL (7-18); CHLORIDE 108 MMOL/L (99-107); GLUCOSE 105 MG/DL (70-104); POTASSIUM 3.2 MMOL/L (3.5-5.1); SODIUM 146 MMOL/L (135-145); TOTAL CARBON DIOXIDE 26.9 MMOL/L (24-32)
[2018-06-12 15:14] LABS: ALANINE AMINOTRANSFERASE 37 U/L (12-78); ALBUMIN 2.6 G/DL (3.4-5.0); ALBUMIN/GLOBULIN RATIO 0.6 (1.1-1.5); ALKALINE PHOSPHATASE 86 IU/L (46-116); ASPARTATE AMINO TRANSFERASE 23 U/L (10-37); BILIRUBIN,TOTAL 0.2 MG/DL (0.1-1.0); BUN/CREATININE RATIO 7.7 (6.6-38.0); CALCIUM 8.4 MG/DL (8.5-10.1); CREATININE 0.65 MG/DL (0.40-0.90); MAGNESIUM 1.8 MG/DL (1.5-2.4); PHOSPHORUS 3.1 MG/DL (2.3-4.5); PREALBUMIN 13.9 MG/DL (19-36); TOTAL PROTEIN 6.7 G/DL (6.4-8.2); TRIGLYCERIDES 194 MG/DL (20-135); eGFR > 90 ML/MIN
[2018-06-12] MEDS ORDERED: VANCOMYCIN LEVEL IV ONE (17:30)
[2018-06-12 18:00] VITALS: BP 127/82
[2018-06-13] VITALS (7 sets, daily range): BP systolic 130–152; BP diastolic 70–86
[2018-06-13] MEDS: fat emulsion IV 100 ML, MVI, adult No.4 with vit. K 10 ML, Trace element-5 inj. 1 ML in... IV SCH ×8 (01:12→21:51)
[2018-06-13] MEDS: VANCOMYCIN 750MG IV in NS 250 ML IV SCH (02:23)
[2018-06-13 06:00] LABS: ALANINE AMINOTRANSFERASE 32 U/L (12-78); ALBUMIN 2.7 G/DL (3.4-5.0); ALBUMIN/GLOBULIN RATIO 0.7 (1.1-1.5); ALKALINE PHOSPHATASE 83 IU/L (46-116); ANION GAP 11 (8-16); ASPARTATE AMINO TRANSFERASE 20 U/L (10-37); BILIRUBIN,TOTAL 0.3 MG/DL (0.1-1.0); BLOOD UREA NITROGEN 5 MG/DL (7-18); CALCIUM 8.6 MG/DL (8.5-10.1); CHLORIDE 110 MMOL/L (99-107); CREATININE 0.71 MG/DL (0.40-0.90); GLUCOSE 94 MG/DL (70-104); MAGNESIUM 1.9 MG/DL (1.5-2.4); PHOSPHORUS 3.9 MG/DL (2.3-4.5); POTASSIUM 3.6 MMOL/L (3.5-5.1); PREALBUMIN 14.5 MG/DL (19-36); SODIUM 145 MMOL/L (135-145); TOTAL CARBON DIOXIDE 24.2 MMOL/L (24-32); TOTAL PROTEIN 6.8 G/DL (6.4-8.2); TRIGLYCERIDES 175 MG/DL (20-135); eGFR 88 ML/MIN
[2018-06-13 07:32] LABS: RED BLOOD COUNT 2.97 X10'6 (4.20-5.60); WHITE BLOOD COUNT 4.4 X10'3 (4.5-11.0)
[2018-06-13 07:33] LABS: BASOPHILS % (AUTO) 0.2 % (0-1); EOSINOPHILS % (AUTO) 3.6 % (0-6); HEMATOCRIT 26.3 % (35.0-45.0); HEMOGLOBIN 8.7 g/dl (12.0-16.0); LYMPHOCYTES # (AUTO) 1.4 X10'3 (1.1-4.8); LYMPHOCYTES % (AUTO) 32.1 % (21-51); MEAN CORPUSCULAR HEMOGLOBIN 29.4 PG (27.0-31.0); MEAN CORPUSCULAR HGB CONC 33.2 % (33.0-36.5); MEAN CORPUSCULAR VOLUME 88.7 FL (78-98); MONOCYTES # (AUTO) 0.4 X10'3 (0-0.9); MONOCYTES % (AUTO) 8.4 % (2-12); NEUTROPHILS # (AUTO) 2.4 X10'3 (1.8-7.7); NEUTROPHILS % (AUTO) 55.7 % (42-75); PLATELET COUNT 158 X10'3 (140-440); RED CELL DISTRIBUTION WIDTH 11.6 % (11.5-14.5)
[2018-06-13 07:34] LABS: EOSINOPHILS # (AUTO) 0.2 X10'3 (0-0.9)
[2018-06-13] MEDS: K and/or MAG REPLACEMENT MC SCH (08:00)
[2018-06-13] MEDS: famotidine/PF 10 mg/ml inj IV SCH ×2 (08:28→19:57)
[2018-06-13] MEDS: potassium Cl 20mEq in D5-NS 1,000 ML IV SCH ×2 (08:28→21:38)
[2018-06-13] MEDS: CefTRIAXone/D5W-Rocephin 1gm 50 ML IV SCH (08:33)
[2018-06-13] MEDS: enoxaparin 40mg/0.4ml syringe SUBCUT SCH (08:34)
[2018-06-13] MEDS: vancomycin/NS 1 GM ADD-VANTAGE 250 ML IV SCH ×2 (10:06→17:29)
[2018-06-14] VITALS: BP 142/82
[2018-06-14] MEDS: vancomycin/NS 1 GM ADD-VANTAGE 250 ML IV SCH ×3 (02:21→17:49)
[2018-06-14] MEDS: potassium Cl 20mEq in D5-NS 1,000 ML IV SCH (04:32)
[2018-06-14 05:35] LABS: BASOPHILS % (AUTO) 0.6 % (0-1); EOSINOPHILS # (AUTO) 0.2 X10'3 (0-0.9); EOSINOPHILS % (AUTO) 4.7 % (0-6); HEMATOCRIT 25.1 % (35.0-45.0); HEMOGLOBIN 8.6 g/dl (12.0-16.0); LYMPHOCYTES # (AUTO) 1.2 X10'3 (1.1-4.8); LYMPHOCYTES % (AUTO) 28.3 % (21-51); MEAN CORPUSCULAR HEMOGLOBIN 30.3 PG (27.0-31.0); MEAN CORPUSCULAR HGB CONC 34.3 % (33.0-36.5); MEAN CORPUSCULAR VOLUME 88.1 FL (78-98); MEAN PLATELET VOLUME 9.3 FL (7.4-10.4); MONOCYTES # (AUTO) 0.3 X10'3 (0-0.9); MONOCYTES % (AUTO) 7.4 % (2-12); NEUTROPHILS # (AUTO) 2.6 X10'3 (1.8-7.7); PLATELET COUNT 170 X10'3 (140-440); RED BLOOD COUNT 2.85 X10'6 (4.20-5.60); RED CELL DISTRIBUTION WIDTH 11.6 % (11.5-14.5); WHITE BLOOD COUNT 4.3 X10'3 (4.5-11.0)
[2018-06-14 06:05] LABS: ALANINE AMINOTRANSFERASE 26 U/L (12-78); ALBUMIN 2.6 G/DL (3.4-5.0); ALBUMIN/GLOBULIN RATIO 0.6 (1.1-1.5); ALKALINE PHOSPHATASE 83 IU/L (46-116); ANION GAP 11 (8-16); ASPARTATE AMINO TRANSFERASE 15 U/L (10-37); BILIRUBIN,TOTAL 0.2 MG/DL (0.1-1.0); BLOOD UREA NITROGEN 11 MG/DL (7-18); BUN/CREATININE RATIO 19.6 (6.6-38.0); CALCIUM 8.4 MG/DL (8.5-10.1); CHLORIDE 106 MMOL/L (99-107); CREATININE 0.56 MG/DL (0.40-0.90); GLUCOSE 116 MG/DL (70-104); PHOSPHORUS 5.3 MG/DL (2.3-4.5); POTASSIUM 3.5 MMOL/L (3.5-5.1); SODIUM 144 MMOL/L (135-145); TOTAL CARBON DIOXIDE 26.8 MMOL/L (24-32); TOTAL PROTEIN 6.7 G/DL (6.4-8.2); eGFR > 90 ML/MIN
[2018-06-14 07:09] VITALS: BP 122/76
[2018-06-14] MEDS: K and/or MAG REPLACEMENT MC SCH (08:00)
[2018-06-14] MEDS ORDERED: VANCOMYCIN LEVEL IV ONE (09:30)
[2018-06-14] MEDS: CefTRIAXone/D5W-Rocephin 1gm 50 ML IV SCH (09:41)
[2018-06-14] MEDS: enoxaparin 40mg/0.4ml syringe SUBCUT SCH (09:46)
[2018-06-14] MEDS: famotidine/PF 10 mg/ml inj IV SCH ×2 (09:47→20:12)
[2018-06-14 11:57] VITALS: BP 126/77
[2018-06-14 19:00] VITALS: BP 156/85
[2018-06-14] MEDS: fat emulsion IV 100 ML, MVI, adult No.4 with vit. K 10 ML, Trace element-5 inj. 1 ML in... IV SCH ×4 (20:13)
[2018-06-14 23:00] VITALS: BP 143/88
[2018-06-15 05:13] LABS: BASOPHILS % (AUTO) 0.8 % (0-1); EOSINOPHILS # (AUTO) 0.2 X10'3 (0-0.9); EOSINOPHILS % (AUTO) 3.9 % (0-6); HEMATOCRIT 28.5 % (35.0-45.0); HEMOGLOBIN 9.7 g/dl (12.0-16.0); LYMPHOCYTES # (AUTO) 1.4 X10'3 (1.1-4.8); LYMPHOCYTES % (AUTO) 24.1 % (21-51); MEAN CORPUSCULAR HEMOGLOBIN 29.9 PG (27.0-31.0); MEAN CORPUSCULAR VOLUME 87.8 FL (78-98); MEAN PLATELET VOLUME 8.4 FL (7.4-10.4); MONOCYTES # (AUTO) 0.4 X10'3 (0-0.9); MONOCYTES % (AUTO) 7.7 % (2-12); NEUTROPHILS # (AUTO) 3.8 X10'3 (1.8-7.7); NEUTROPHILS % (AUTO) 63.5 % (42-75); PLATELET COUNT 222 X10'3 (140-440); RED BLOOD COUNT 3.24 X10'6 (4.20-5.60); RED CELL DISTRIBUTION WIDTH 11.9 % (11.5-14.5); WHITE BLOOD COUNT 5.8 X10'3 (4.5-11.0)
[2018-06-15 05:24] LABS: ALANINE AMINOTRANSFERASE 28 U/L (12-78); ALBUMIN/GLOBULIN RATIO 0.7 (1.1-1.5); ALKALINE PHOSPHATASE 91 IU/L (46-116); ANION GAP 10 (8-16); ASPARTATE AMINO TRANSFERASE 16 U/L (10-37); BILIRUBIN,TOTAL 0.2 MG/DL (0.1-1.0); BLOOD UREA NITROGEN 16 MG/DL (7-18); BUN/CREATININE RATIO 28.1 (6.6-38.0); CALCIUM 8.7 MG/DL (8.5-10.1); CHLORIDE 104 MMOL/L (99-107); CREATININE 0.57 MG/DL (0.40-0.90); GLUCOSE 102 MG/DL (70-104); MAGNESIUM 2.2 MG/DL (1.5-2.4); POTASSIUM 3.8 MMOL/L (3.5-5.1); SODIUM 142 MMOL/L (135-145); TOTAL CARBON DIOXIDE 27.8 MMOL/L (24-32); TOTAL PROTEIN 7.3 G/DL (6.4-8.2); eGFR > 90 ML/MIN
[2018-06-15 08:00] VITALS: BP 146/84
[2018-06-15] MEDS: K and/or MAG REPLACEMENT MC SCH (08:00)
[2018-06-15] MEDS: enoxaparin 40mg/0.4ml syringe SUBCUT SCH (08:21)
[2018-06-15] MEDS: famotidine/PF 10 mg/ml inj IV SCH ×2 (08:21→19:48)
[2018-06-15] MEDS: CefTRIAXone 2gm/D5W 50ml 50 ML IV SCH (08:21)
[2018-06-15 11:40] VITALS: BP 123/70
[2018-06-15] MEDS: potassium Cl 20mEq in D5-NS 1,000 ML IV SCH ×2 (13:38→16:14)
[2018-06-15] MEDS: fat emulsion IV 100 ML, MVI, adult No.4 with vit. K 10 ML, Trace element-5 inj. 1 ML in... IV SCH ×12 (17:47→19:42)
[2018-06-15 19:00] VITALS: BP 128/84
[2018-06-15] MEDS: lactobacillus rhamnosus 10,000 MMU CELLS/CAPSULE JT SCH (19:48)
[2018-06-16] VITALS: BP 128/75
[2018-06-16] MEDS: fat emulsion IV 100 ML, MVI, adult No.4 with vit. K 10 ML, Trace element-5 inj. 1 ML in... IV SCH ×8 (02:16→16:27)
[2018-06-16 08:00] VITALS: BP 133/78
[2018-06-16] MEDS: K and/or MAG REPLACEMENT MC SCH (08:00)
[2018-06-16] MEDS: CefTRIAXone 2gm/D5W 50ml 50 ML IV SCH (08:24)
[2018-06-16] MEDS: famotidine/PF 10 mg/ml inj IV SCH ×2 (08:29→20:41)
[2018-06-16] MEDS: enoxaparin 40mg/0.4ml syringe SUBCUT SCH (08:36)
[2018-06-16] MEDS: lactobacillus rhamnosus 10,000 MMU CELLS/CAPSULE JT SCH ×2 (08:36→20:40)
[2018-06-16 11:53] VITALS: BP 110/70
[2018-06-16 12:27] LABS: ALANINE AMINOTRANSFERASE 40 U/L (12-78); ALBUMIN 3.4 G/DL (3.4-5.0); ALBUMIN/GLOBULIN RATIO 0.7 (1.1-1.5); ALKALINE PHOSPHATASE 107 IU/L (46-116); ANION GAP 12 (8-16); ASPARTATE AMINO TRANSFERASE 32 U/L (10-37); BILIRUBIN,TOTAL 0.1 MG/DL (0.1-1.0); BLOOD UREA NITROGEN 21 MG/DL (7-18); BUN/CREATININE RATIO 34.4 (6.6-38.0); CALCIUM 9.2 MG/DL (8.5-10.1); CHLORIDE 104 MMOL/L (99-107); CREATININE 0.61 MG/DL (0.40-0.90); GLUCOSE 103 MG/DL (70-104); POTASSIUM 4.4 MMOL/L (3.5-5.1); SODIUM 141 MMOL/L (135-145); TOTAL CARBON DIOXIDE 24.6 MMOL/L (24-32); eGFR > 90 ML/MIN
[2018-06-16] MEDS: potassium Cl 20mEq in D5-NS 1,000 ML IV SCH (16:50)
[2018-06-16 19:30] VITALS: BP 144/87
[2018-06-17 00:10] VITALS: BP 123/75
[2018-06-17 05:45] LABS: ALANINE AMINOTRANSFERASE 38 U/L (12-78); ALBUMIN/GLOBULIN RATIO 0.7 (1.1-1.5); ALKALINE PHOSPHATASE 92 IU/L (46-116); ANION GAP 7 (8-16); ASPARTATE AMINO TRANSFERASE 25 U/L (10-37); BILIRUBIN,TOTAL 0.2 MG/DL (0.1-1.0); BLOOD UREA NITROGEN 20 MG/DL (7-18); BUN/CREATININE RATIO 31.3 (6.6-38.0); CALCIUM 9.1 MG/DL (8.5-10.1); CHLORIDE 106 MMOL/L (99-107); CREATININE 0.64 MG/DL (0.40-0.90); GLUCOSE 104 MG/DL (70-104); PHOSPHORUS 4.2 MG/DL (2.3-4.5); POTASSIUM 3.8 MMOL/L (3.5-5.1); PREALBUMIN 22.9 MG/DL (19-36); SODIUM 142 MMOL/L (135-145); TOTAL CARBON DIOXIDE 29.1 MMOL/L (24-32); TOTAL PROTEIN 7.1 G/DL (6.4-8.2); TRIGLYCERIDES 170 MG/DL (20-135); eGFR > 90 ML/MIN
[2018-06-17 06:20] LABS: UREA NITROGEN 24HR,URINE 8.5 GM/24HR (7-20)
[2018-06-17 07:12] VITALS: BP 138/78
[2018-06-17] MEDS: K and/or MAG REPLACEMENT MC SCH (08:00)
[2018-06-17] MEDS: famotidine/PF 10 mg/ml inj IV SCH (08:04)
[2018-06-17] MEDS: enoxaparin 40mg/0.4ml syringe SUBCUT SCH (08:05)
[2018-06-17] MEDS: CefTRIAXone 2gm/D5W 50ml 50 ML IV SCH (08:05)
[2018-06-17] MEDS: lactobacillus rhamnosus 10,000 MMU CELLS/CAPSULE JT SCH (08:05)
[2018-06-17] MEDS ORDERED: CEFT2PIG IV ×2 (11:29→12:30)
[2018-06-17 12:14] VITALS: BP 130/76
== END 2018-06-17 15:00 | disposition home or self-care (01) | DRG 314 ==
LOC: ER 14:53 → ED HOLD 18:32 → SUR 3N 20:20
PROVIDERS: ADMIT Internal Medicine; ATTEND Internal Medicine
DX: T80.211A Bloodstream infection due to central venous catheter, initial encounter (principal); E43 Unspecified severe protein-calorie malnutrition; A41.59 Other Gram-negative sepsis; K56.609 Unspecified intestinal obstruction, unspecified as to partial versus complete obstruction; E87.1 Hypo-osmolality and hyponatremia; E87.0 Hyperosmolality and hypernatremia; E87.6 Hypokalemia; B96.1 Klebsiella pneumoniae [K. pneumoniae] as the cause of diseases classified elsewhere; D63.8 Anemia in other chronic diseases classified elsewhere; K31.84 Gastroparesis; G89.4 Chronic pain syndrome; B95.7 Other staphylococcus as the cause of diseases classified elsewhere; Y84.8 Other medical procedures as the cause of abnormal reaction of the patient, or of later complication, without mention of misadventure at the time of the procedure; Z93.1 Gastrostomy status; Z93.4 Other artificial openings of gastrointestinal tract status; Z79.899 Other long term (current) drug therapy; Z68.21 Body mass index [BMI] 21.0-21.9, adult
CPT/HCPCS: 36415; 71045; 74177; 80053; 80202; 81001; 81025; 82948; 83605; 83735; 84100; 84134; 84145; 84478; 84560; 85025; 85610; 85730; 87040; 87070; 87077; 87186; 93005; 93306; 96361; 96365; 99285; A6223; A6257; J0692; J0696; J1650; J3370; J3480; J3490; J7030; Q9967

== ENCOUNTER 2019-08-21 11:15 | Day surgery (SDC) | payer MEDICARE ==
[~2019-08-21] VITALS: Ht 162.6 cm; Wt 52.1 kg
[~2019-08-21 11:15] MED LIST changes: +ESCI5SOL4 PO; -LACT1CAP26 PO; +LANS15CA10 PO; -MIRT15TA8 PO; +MIRT45TA83 PO; +PROC25SU31 RC; +PROM25TA14 RC; -PROM6.256 PR; -SCOP TOP
[2019-08-21 11:30] VITALS: BP 91/62
[2019-08-21] MEDS ORDERED: normal saline 1000ml 1,000 ML IV PRN (11:55)
[2019-08-21] MEDS ORDERED: MIDAZolam 1mg/ml 10ml vial IV ONE (11:55)
[2019-08-21] MEDS ORDERED: fentaNYL/PF 50MCG/1 ML 2ML syringe IV ONE (11:55)
[2019-08-21] MEDS ORDERED: cefazolin/dext.iso 2gm/100ml 100 ML IV ONE (11:55)
[2019-08-21] MEDS ORDERED: LIDOcaine 1% (10mg/ml) 2ml vial SQ ONE (13:30)
[2019-08-21] MEDS ORDERED: iohexol 300 MG/1 ML 50ml polymer ONE (13:47)
[2019-08-21 14:07] VITALS: BP 115/73
[2019-08-21 14:11] VITALS: BP 108/73
== END 2019-08-21 14:20 | disposition home or self-care (01) ==
LOC: SSTAY O 11:15
PROVIDERS: ATTEND Radiology Diagnostic Radiology
DX: Z43.1 Encounter for attention to gastrostomy (principal); K31.84 Gastroparesis; Z88.8 Allergy status to other drugs, medicaments and biological substances; Z79.899 Other long term (current) drug therapy
CPT/HCPCS: 49450; J7030; Q9967

== ENCOUNTER 2019-09-09 17:42 | Outpatient (CLI) | payer MEDICARE ==
[~2019-09-09 17:42] MED LIST changes: -ESCI5SOL4 PO
[2019-09-09 18:25] LABS: ALANINE AMINOTRANSFERASE 20 U/L (12-78); ALBUMIN 3.8 G/DL (3.4-5.0); ALBUMIN/GLOBULIN RATIO 1.1 (1.1-1.5); ALKALINE PHOSPHATASE 55 IU/L (46-116); ANION GAP 11 (8-16); ASPARTATE AMINO TRANSFERASE 18 U/L (10-37); BILIRUBIN,TOTAL 0.1 MG/DL (0.1-1.0); BLOOD UREA NITROGEN 23 MG/DL (7-18); BUN/CREATININE RATIO 27.1 (6.6-38.0); CHLORIDE 104 MMOL/L (99-107); CREATININE 0.85 MG/DL (0.40-0.90); GLUCOSE 136 MG/DL (70-104); MAGNESIUM 1.9 MG/DL (1.5-2.4); PHOSPHORUS 4.3 MG/DL (2.3-4.5); SODIUM 146 MMOL/L (135-145); TOTAL CARBON DIOXIDE 30.7 MMOL/L (24-32); TOTAL PROTEIN 7.3 G/DL (6.4-8.2); TRIGLYCERIDES 87 MG/DL (20-135); eGFR 71 ML/MIN
[2019-09-09 18:26] LABS: POTASSIUM 3.5 MMOL/L (3.5-5.1)
[2019-09-09 18:29] LABS: BASOPHILS % (AUTO) 0.6 % (0-1); EOSINOPHILS # (AUTO) 0.1 X10'3 (0-0.9); EOSINOPHILS % (AUTO) 2.6 % (0-6); HEMATOCRIT 32.6 % (35.0-45.0); HEMOGLOBIN 10.9 g/dl (12.0-16.0); LYMPHOCYTES # (AUTO) 1.5 X10'3 (1.1-4.8); LYMPHOCYTES % (AUTO) 38.5 % (21-51); MEAN CORPUSCULAR HEMOGLOBIN 29.9 PG (27.0-31.0); MEAN CORPUSCULAR HGB CONC 33.5 g/dL (33.0-36.5); MEAN CORPUSCULAR VOLUME 89.1 FL (78-98); MEAN PLATELET VOLUME 10.3 FL (7.4-10.4); MONOCYTES # (AUTO) 0.4 X10'3 (0-0.9); NEUTROPHILS # (AUTO) 1.8 X10'3 (1.8-7.7); NEUTROPHILS % (AUTO) 47.3 % (42-75); PLATELET COUNT 162 X10'3 (140-440); RED BLOOD COUNT 3.65 X10'6 (4.20-5.60); RED CELL DISTRIBUTION WIDTH 12.9 % (11.5-14.5); WHITE BLOOD COUNT 3.9 X10'3 (4.5-11.0)
== END 2019-09-09 23:59 | disposition home or self-care (01) ==
LOC: LAB SPEC 17:42
PROVIDERS: ATTEND Nurse Practitioner Family
DX: K31.84 Gastroparesis (principal); R79.89 Other specified abnormal findings of blood chemistry
CPT/HCPCS: 36415; 80053; 83735; 84100; 84478; 85025

== ENCOUNTER 2020-01-03 15:59 | Inpatient (IN) | payer MEDICARE ==
[~2020-01-03] VITALS: Ht 165.1 cm; Wt 48.1 kg
[2020-01-03 16:52] LABS: BASOPHILS % (AUTO) 0.5 % (0-1); EOSINOPHILS # (AUTO) 0.1 X10'3 (0-0.9); EOSINOPHILS % (AUTO) 2.3 % (0-6); HEMOGLOBIN 13.1 g/dl (12.0-16.0); LYMPHOCYTES # (AUTO) 1.8 X10'3 (1.1-4.8); LYMPHOCYTES % (AUTO) 38.5 % (21-51); MEAN CORPUSCULAR HEMOGLOBIN 29.5 PG (27.0-31.0); MEAN CORPUSCULAR HGB CONC 33.5 g/dL (33.0-36.5); MEAN CORPUSCULAR VOLUME 88.1 FL (78-98); MONOCYTES # (AUTO) 0.5 X10'3 (0-0.9); MONOCYTES % (AUTO) 10.7 % (2-12); NEUTROPHILS # (AUTO) 2.2 X10'3 (1.8-7.7); PLATELET COUNT 236 X10'3 (140-440); RED BLOOD COUNT 4.43 X10'6 (4.20-5.60); RED CELL DISTRIBUTION WIDTH 13.3 % (11.5-14.5); WHITE BLOOD COUNT 4.6 X10'3 (4.5-11.0)
[2020-01-03 17:05] LABS: PARTIAL THROMBOPLASTIN TIME 25 SECONDS (22-32)
[2020-01-03 17:12] LABS: CLARITY,URINE CLEAR (Clear); COLOR,URINE YELLOW (Yellow); GLUCOSE, URINE NEGATIVE (Neg); KETONES,URINE NEGATIVE (Neg); LEUKOCYTE ESTERASE ,URINE NEGATIVE (Neg); NITRITES, URINE NEGATIVE (Neg); OCCULT BLOOD,URINE NEGATIVE (Neg); PH,URINE 8.5 (4.8-8.0); PROTEIN,URINE TRACE mg/dl (Neg); URINE HCG NEGATIVE (NEG)
[2020-01-03 17:15] LABS: UA COLLECTION TYPE CLN CATCH MIDSTREAM
[2020-01-03 17:16] LABS: BACTERIA,URINE NONE SEEN /HPF (Neg); MUCUS STRANDS FEW /LPF (Neg); RBC,URINE 0-2 /HPF (0-2); SQUAMOUS EPITHELIAL CELL,UR FEW /LPF (FEW); WBC,URINE 0-4 /HPF (0-4)
[2020-01-03 17:17] LABS: ALANINE AMINOTRANSFERASE 16 U/L (12-78); ALBUMIN 4.3 G/DL (3.4-5.0); ALKALINE PHOSPHATASE 61 IU/L (46-116); ANION GAP 6 (8-16); ASPARTATE AMINO TRANSFERASE 20 U/L (10-37); BILIRUBIN,TOTAL 0.3 MG/DL (0.1-1.0); BLOOD UREA NITROGEN 14 MG/DL (7-18); CALCIUM 10.4 MG/DL (8.5-10.1); CHLORIDE 100 MMOL/L (99-107); CREATININE 1.17 MG/DL (0.40-0.90); GLUCOSE 102 MG/DL (70-104); LIPASE 185 U/L (73-393); SODIUM 145 MMOL/L (135-145); TOTAL CARBON DIOXIDE 38.7 MMOL/L (24-32); TOTAL PROTEIN 8.6 G/DL (6.4-8.2); eGFR 49 ML/MIN
[2020-01-03 17:19] LABS: POTASSIUM 2.6 MMOL/L (3.5-5.1)
[2020-01-03] MEDS ORDERED: potassium 10mEq/100ml NS w/LIDOcaine (10mg/bag) IV ONE (17:25)
[2020-01-03] MEDS ORDERED: potassium Cl 10 mEq/100mL bag IV ONE (17:30)
[2020-01-03 17:44] LABS: MAGNESIUM 2.3 MG/DL (1.5-2.4)
--- NOTE | 2020-01-03 20:00 | NUR ---
Patient in room PCU 3013. I have received report from Luca BARRIENTOS by telephone from ER and had the opportunity to ask questions and assume patient care.
--- NOTE | 2020-01-03 20:14 | NUR ---
PAGER ID: [phone] MESSAGE: [id number] Concetta [place]: Admitted with hypokalemia to PCU with no code status or potassium protocol. [place] BARRIENTOS [id number]
[2020-01-03] MEDS ORDERED: potassium Cl 20 mEq SR tablet PO PRN ×2 (20:15)
[2020-01-03] MEDS ORDERED: potassium CL 10mEq/100ml bag 100 ML IV PRN (20:15)
--- NOTE | 2020-01-03 20:25 | NUR ---
PAGER ID: [phone] MESSAGE: [id number] pt LOS admitted with K 2.6. No code status in. Replaced K in ER x1 but no further orders in. Patient also c/o pain with IV K after first replacement. Also no tele ordered, did you want one with this K? - [id number]
[2020-01-03] MEDS ORDERED: potass W/LIDOcaine 10mEq/100ml 100 ML IV ONE (20:30)
[2020-01-03 21:00] VITALS: BP 135/77
[2020-01-03] MEDS: potassium CL 10mEq/100ml bag 100 ML IV PRN (21:12)
[2020-01-04] MEDS: potassium CL 10mEq/100ml bag 100 ML IV PRN ×5 (00:07→09:41)
[2020-01-04 02:00] VITALS: BP 101/67
[2020-01-04 06:00] VITALS: BP 120/73
[2020-01-04 06:09] LABS: BASOPHILS % (AUTO) 0.5 % (0-1); EOSINOPHILS % (AUTO) 0.8 % (0-6); HEMATOCRIT 31.7 % (35.0-45.0); HEMOGLOBIN 10.6 g/dl (12.0-16.0); LYMPHOCYTES # (AUTO) 1.7 X10'3 (1.1-4.8); LYMPHOCYTES % (AUTO) 30.8 % (21-51); MEAN CORPUSCULAR HEMOGLOBIN 29.2 PG (27.0-31.0); MEAN CORPUSCULAR HGB CONC 33.4 g/dL (33.0-36.5); MEAN CORPUSCULAR VOLUME 87.5 FL (78-98); MEAN PLATELET VOLUME 9.3 FL (7.4-10.4); MONOCYTES # (AUTO) 0.6 X10'3 (0-0.9); MONOCYTES % (AUTO) 10.3 % (2-12); NEUTROPHILS # (AUTO) 3.2 X10'3 (1.8-7.7); NEUTROPHILS % (AUTO) 57.6 % (42-75); PLATELET COUNT 196 X10'3 (140-440); RED BLOOD COUNT 3.62 X10'6 (4.20-5.60); RED CELL DISTRIBUTION WIDTH 13.2 % (11.5-14.5); WHITE BLOOD COUNT 5.5 X10'3 (4.5-11.0)
[2020-01-04 06:17] LABS: ALBUMIN 3.4 G/DL (3.4-5.0); ANION GAP 7 (8-16); BLOOD UREA NITROGEN 12 MG/DL (7-18); BUN/CREATININE RATIO 13.6 (6.6-38.0); CALCIUM 9.2 MG/DL (8.5-10.1); CHLORIDE 104 MMOL/L (99-107); CREATININE 0.88 MG/DL (0.40-0.90); GLUCOSE 101 MG/DL (70-104); POTASSIUM 4.1 MMOL/L (3.5-5.1); SODIUM 142 MMOL/L (135-145); TOTAL CARBON DIOXIDE 31.4 MMOL/L (24-32); eGFR 68 ML/MIN
--- NOTE | 2020-01-04 06:40 | NUR ---
Problems reprioritized. Patient report given, questions answered & plan of care reviewed with Carolina BARRIENTOS.
--- NOTE | 2020-01-04 06:40 | NUR ---
Patient in room PCU 3013. I have received report from LILLIAM tirado and had the opportunity to ask questions and assume patient care.
[2020-01-04] MEDS ORDERED: K and/or MAG REPLACEMENT MC SCH (08:00)
[2020-01-04 11:00] VITALS: BP 99/61
--- NOTE | 2020-01-04 12:50 | NUR ---
reviewed all discharge instructions,no new prescriptions, right and left forearm ivs both dc'd,both sites clear,Pt dc'd via wheelchair with all belongings
--- NOTE | 2020-01-06 13:49 | NUR ---
Case Management DC follow up: LM/VM post DC status, questions, concerns
== END 2020-01-04 12:51 | disposition home or self-care (01) | DRG 641 ==
LOC: ER 16:00 → ED HOLD 19:15 → PCU 3S 20:00
PROVIDERS: ADMIT Internal Medicine; ATTEND Family Medicine
DX: E87.6 Hypokalemia (principal); D64.9 Anemia, unspecified; F32.9 Major depressive disorder, single episode, unspecified; Z93.1 Gastrostomy status; M79.7 Fibromyalgia; M19.90 Unspecified osteoarthritis, unspecified site; K31.84 Gastroparesis; Z79.899 Other long term (current) drug therapy; G43.909 Migraine, unspecified, not intractable, without status migrainosus
CPT/HCPCS: 36415; 71045; 80048; 80053; 81001; 81025; 83605; 83690; 83735; 83880; 84145; 84484; 85025; 85610; 85730; 87040; 87081; 93005; 93971; 96365; 99285; G0378; J3480

== ENCOUNTER 2020-04-23 17:47 | Outpatient (CLI) | payer MEDICARE ==
[~2020-04-23 17:47] MED LIST changes: -OXCA150T5 PO; -PROC25SU31 RC
[2020-04-23 18:53] LABS: BASOPHILS % (AUTO) 0.8 % (0-1); EOSINOPHILS # (AUTO) 0.1 X10'3 (0-0.9); EOSINOPHILS % (AUTO) 1.9 % (0-6); HEMATOCRIT 29.5 % (35.0-45.0); HEMOGLOBIN 9.8 g/dl (12.0-16.0); LYMPHOCYTES # (AUTO) 1.6 X10'3 (1.1-4.8); LYMPHOCYTES % (AUTO) 32.3 % (21-51); MEAN CORPUSCULAR HGB CONC 33.3 g/dL (33.0-36.5); MEAN PLATELET VOLUME 9.4 FL (7.4-10.4); MONOCYTES # (AUTO) 0.5 X10'3 (0-0.9); NEUTROPHILS # (AUTO) 2.7 X10'3 (1.8-7.7); PLATELET COUNT 240 X10'3 (140-440); RED BLOOD COUNT 3.28 X10'6 (4.20-5.60); RED CELL DISTRIBUTION WIDTH 13.5 % (11.5-14.5); WHITE BLOOD COUNT 4.9 X10'3 (4.5-11.0)
[2020-04-23 19:14] LABS: ALANINE AMINOTRANSFERASE 31 U/L (12-78); ALBUMIN 3.4 G/DL (3.4-5.0); ALBUMIN/GLOBULIN RATIO 1.1 (1.1-1.5); ALKALINE PHOSPHATASE 61 IU/L (46-116); ANION GAP 9 (8-16); ASPARTATE AMINO TRANSFERASE 27 U/L (10-37); BILIRUBIN,TOTAL 0.2 MG/DL (0.1-1.0); BLOOD UREA NITROGEN 11 MG/DL (7-18); BUN/CREATININE RATIO 13.4 (6.6-38.0); CHLORIDE 106 MMOL/L (99-107); CREATININE 0.82 MG/DL (0.40-0.90); GLUCOSE 99 MG/DL (70-104); MAGNESIUM 2.1 MG/DL (1.5-2.4); PHOSPHORUS 4.2 MG/DL (2.3-4.5); POTASSIUM 3.8 MMOL/L (3.5-5.1); SODIUM 143 MMOL/L (135-145); TOTAL CARBON DIOXIDE 27.7 MMOL/L (24-32); TOTAL PROTEIN 6.5 G/DL (6.4-8.2); TRIGLYCERIDES 127 MG/DL (20-135); eGFR 74 ML/MIN
== END 2020-04-23 23:59 | disposition home or self-care (01) ==
LOC: LAB SPEC 17:47
PROVIDERS: ATTEND Nurse Practitioner Family
DX: K31.84 Gastroparesis (principal); K59.8 Other specified functional intestinal disorders; Z93.4 Other artificial openings of gastrointestinal tract status; M79.7 Fibromyalgia; Z93.1 Gastrostomy status; M19.90 Unspecified osteoarthritis, unspecified site; E78.9 Disorder of lipoprotein metabolism, unspecified
CPT/HCPCS: 36415; 80053; 83735; 84100; 84478; 85025

== ENCOUNTER 2020-12-03 13:29 | Outpatient (CLI) | payer MEDICARE ==
[2020-12-03 15:06] LABS: ALANINE AMINOTRANSFERASE 25 U/L (12-78); ALBUMIN 3.6 G/DL (3.4-5.0); ALBUMIN/GLOBULIN RATIO 1.2 (1.1-1.5); ALKALINE PHOSPHATASE 68 IU/L (46-116); ANION GAP 11 (8-16); ASPARTATE AMINO TRANSFERASE 26 U/L (10-37); BILIRUBIN,TOTAL 0.2 MG/DL (0.1-1.0); BLOOD UREA NITROGEN 19 MG/DL (7-18); BUN/CREATININE RATIO 18.6 (6.6-38.0); CALCIUM 8.5 MG/DL (8.5-10.1); CHLORIDE 107 MMOL/L (99-107); CREATININE 1.02 MG/DL (0.40-0.90); GLUCOSE 108 MG/DL (70-104); PHOSPHORUS 2.9 MG/DL (2.3-4.5); POTASSIUM 3.2 MMOL/L (3.5-5.1); SODIUM 147 MMOL/L (135-145); TOTAL CARBON DIOXIDE 28.9 MMOL/L (24-32); TOTAL PROTEIN 6.7 G/DL (6.4-8.2); TRIGLYCERIDES 166 MG/DL (20-135); eGFR 57 ML/MIN
[2020-12-03 15:23] LABS: BASOPHILS % (AUTO) 0.4 % (0-1); EOSINOPHILS # (AUTO) 0.3 X10'3 (0-0.9); EOSINOPHILS % (AUTO) 4.6 % (0-6); HEMATOCRIT 28.4 % (35.0-45.0); HEMOGLOBIN 9.4 g/dl (12.0-16.0); LYMPHOCYTES # (AUTO) 1.5 X10'3 (1.1-4.8); LYMPHOCYTES % (AUTO) 27.3 % (21-51); MEAN CORPUSCULAR HGB CONC 33.1 g/dL (33.0-36.5); MEAN CORPUSCULAR VOLUME 84.7 FL (78-98); MEAN PLATELET VOLUME 9.9 FL (7.4-10.4); MONOCYTES # (AUTO) 0.7 X10'3 (0-0.9); MONOCYTES % (AUTO) 11.8 % (2-12); NEUTROPHILS # (AUTO) 3.2 X10'3 (1.8-7.7); NEUTROPHILS % (AUTO) 55.9 % (42-75); PLATELET COUNT 169 X10'3 (140-440); RED BLOOD COUNT 3.35 X10'6 (4.20-5.60); RED CELL DISTRIBUTION WIDTH 15.1 % (11.5-14.5); WHITE BLOOD COUNT 5.7 X10'3 (4.5-11.0)
== END 2020-12-03 23:59 | disposition home or self-care (01) ==
LOC: LAB 13:29
PROVIDERS: ATTEND Family Medicine
DX: N39.0 Urinary tract infection, site not specified (principal); K31.84 Gastroparesis; K59.89 Other specified functional intestinal disorders; R50.81 Fever presenting with conditions classified elsewhere; Z79.899 Other long term (current) drug therapy
CPT/HCPCS: 36415; 80053; 83735; 84100; 84478; 85025

== ENCOUNTER 2020-12-08 17:54 | Outpatient (CLI) | payer MEDICARE ==
[2020-12-08 18:59] LABS: BASOPHILS % (AUTO) 0.3 % (0-1); EOSINOPHILS % (AUTO) 0.4 % (0-6); HEMATOCRIT 28.9 % (35.0-45.0); HEMOGLOBIN 9.6 g/dl (12.0-16.0); LYMPHOCYTES # (AUTO) 1.8 X10'3 (1.1-4.8); LYMPHOCYTES % (AUTO) 25.1 % (21-51); MEAN CORPUSCULAR HGB CONC 33.1 g/dL (33.0-36.5); MEAN CORPUSCULAR VOLUME 84.6 FL (78-98); MEAN PLATELET VOLUME 10.1 FL (7.4-10.4); MONOCYTES # (AUTO) 0.8 X10'3 (0-0.9); MONOCYTES % (AUTO) 11.7 % (2-12); NEUTROPHILS # (AUTO) 4.5 X10'3 (1.8-7.7); NEUTROPHILS % (AUTO) 62.5 % (42-75); PLATELET COUNT 180 X10'3 (140-440); RED BLOOD COUNT 3.41 X10'6 (4.20-5.60); RED CELL DISTRIBUTION WIDTH 14.9 % (11.5-14.5); WHITE BLOOD COUNT 7.2 X10'3 (4.5-11.0)
[2020-12-08 19:14] LABS: ALANINE AMINOTRANSFERASE 20 U/L (12-78); ALBUMIN 3.6 G/DL (3.4-5.0); ALBUMIN/GLOBULIN RATIO 1.1 (1.1-1.5); ALKALINE PHOSPHATASE 72 IU/L (46-116); ANION GAP 10 (8-16); ASPARTATE AMINO TRANSFERASE 20 U/L (10-37); BILIRUBIN,TOTAL 0.2 MG/DL (0.1-1.0); BLOOD UREA NITROGEN 19 MG/DL (7-18); BUN/CREATININE RATIO 22.6 (6.6-38.0); CALCIUM 9.2 MG/DL (8.5-10.1); CHLORIDE 104 MMOL/L (99-107); CREATININE 0.84 MG/DL (0.40-0.90); GLUCOSE 97 MG/DL (70-104); MAGNESIUM 2.1 MG/DL (1.5-2.4); PHOSPHORUS 2.3 MG/DL (2.3-4.5); POTASSIUM 3.6 MMOL/L (3.5-5.1); SODIUM 144 MMOL/L (135-145); TOTAL CARBON DIOXIDE 30.4 MMOL/L (24-32); TRIGLYCERIDES 81 MG/DL (20-135); eGFR 72 ML/MIN
== END 2020-12-08 23:59 | disposition home or self-care (01) ==
LOC: LAB SPEC 17:54
PROVIDERS: ATTEND Nurse Practitioner Family
DX: K31.84 Gastroparesis (principal); Z00.00 Encounter for general adult medical examination without abnormal findings
CPT/HCPCS: 36415; 80053; 83735; 83880; 84100; 84478; 85025